=== PATIENT | female | born 1980 | race Caucasian/White ===

== ENCOUNTER 2023-02-23 14:50 | Outpatient (OUT) | payer BC, SELFPAY ==
[2023-02-23 15:52] LABS: Erythrocyte Sedimentation Rate 5 mm/hr (<=20)
[2023-02-23 16:29] LABS: Thyroid Stimulating Hormone 1.106 uIU/mL (0.358-3.740)
[2023-02-23 16:37] LABS: C Reactive Protein <0.2 mg/dL (<=1.0)
[2023-02-24 06:09] LABS: HIV Ab/p24 Ag Screen Non Reactive (Non Reactive)
[2023-02-26 16:09] LABS: Deamidated Gliadin Abs, IgA 12 units (0-19); Deamidated Gliadin Abs, IgG 4 units (0-19); Endomysial Antibody IgA Negative (Negative); Immunoglobulin A, Qn, Serum 150 mg/dL (87-352); t-Transglutaminase (tTG) IgA <2 U/mL (0-3); t-Transglutaminase (tTG) IgG <2 U/mL (0-5)
[2023-02-28 09:10] LABS: C. Difficile PCR NEGATIVE (NEGATIVE)
[2023-02-28 14:14] LABS: Pancreatic Elastase, Fecal 106 (>200)
[2023-03-02 17:09] LABS: Ova + Parasite Exam Final report (.)
[2023-03-03 21:08] LABS: Calprotectin, Fecal 29 ug/g (0-120)
== END 2023-02-23 14:51 ==
LOC: LAB 14:57
PROVIDERS: PCP Family Medicine
DX: K58.0 Irritable bowel syndrome with diarrhea (principal)
CPT/HCPCS: 36415; 82656; 82784; 83993; 84302; 84443; 85652; 86140; 86231; 86258; 86364; 87045; 87046; 87177; 87209; 87389; 87427; 87493

== ENCOUNTER 2025-02-17 12:16 | Outpatient (REF) | payer BC, SELFPAY ==
[2025-02-19 17:08] LABS: Age Gdln ACOG Testing Note (.); HPV Aptima Negative (Negative); IGP, Aptima HPV, rfx 16/18,45 Note (.)
== END 2025-02-17 12:17 | disposition home or self-care (01) ==
LOC: LAB 12:16
PROVIDERS: PCP Family Medicine; Visit Provider Physician Assistant
DX: Z01.419 Encounter for gynecological examination (general) (routine) without abnormal findings (principal)
CPT/HCPCS: 87624; 88175

== ENCOUNTER 2025-02-25 10:07 | Outpatient (OUT) | payer BC, SELFPAY ==
[2025-02-25 10:42] LABS: Basophils Absolute Auto 0.1 10^3/uL (0.0-0.1); Basophils Percent Auto 0.5 % (0.2-2.0); Eosinophils Absolute Auto 0.2 10^3/uL (0.0-0.7); Eosinophils Percent Auto 2.3 % (0.9-7.0); Hematocrit 38.1 % (36.0-48.0); Hemoglobin 12.7 g/dL (12.0-16.0); Immature Granulocytes Abs Auto 0.03 10^3/uL (0.00-0.03); Immature Granulocytes Pct Auto 0.3 % (0.0-0.5); Lymphocytes Absolute Auto 1.5 10^3/uL (1.2-3.8); Lymphocytes Percent Auto 14.9 % (20.5-60.0); Mean Corpuscular HGB Conc 33.3 g/dL (29.9-35.2); Mean Corpuscular Hemoglobin 28.9 pg (26.7-34.0); Mean Corpuscular Volume 86.6 fL (81.0-99.0); Mean Platelet Volume 11.9 fL (9.5-13.5); Monocytes Absolute Auto 0.4 10^3/uL (0.3-0.8); Monocytes Percent Auto 4.2 % (1.7-12.0); Neutrophils Absolute Auto 7.9 10^3/uL (1.4-6.5); Neutrophils Percent Auto 77.8 % (43.0-75.0); Platelet Count 253 10^3/uL (150-450); Red Cell Distribution Width 13.1 % (11.0-15.0); White Blood Count 10.1 10^3/uL (4.0-11.0)
[2025-02-25 10:51] LABS: INR 1.03; Partial Thromboplastin Time 25.4 sec (22.3-36.2); Prothrombin Time 10.9 sec (9.0-11.6)
[2025-02-25 11:32] LABS: Estimated Average Glucose 111 mg/dL; Glycohemoglobin A1C 5.5 % (4.5-6.2)
[2025-02-25 11:42] LABS: Free T4 0.91 ng/dL (0.76-1.46)
[2025-02-25 11:49] LABS: HCG Quantitative <1 mIU/mL
== END 2025-02-25 10:08 | disposition home or self-care (01) ==
LOC: LAB 10:10
PROVIDERS: PCP Family Medicine; Visit Provider Physician Assistant
DX: N92.0 Excessive and frequent menstruation with regular cycle (principal)
CPT/HCPCS: 36415; 83036; 84439; 84443; 84702; 85025; 85610; 85730

== ENCOUNTER 2025-03-25 16:33 | Outpatient (REF) | payer BC, SELFPAY ==
--- OUTSIDE RECORDS SUMMARY | 2024-12-03 09:00 | XMS_ITS | Continuity of Care Document ---
Author Organization [facility] Address [address] [place] [address] Phone Care Team Providers Care Plastics Engineer Name Role Phone Sandip Roberson MD Unavailable Unavailable Allergies, Adverse Reactions, Alerts Substance Reaction Status Criticality Sulfa (Sulfonamide Antibiotics) Hives / Skin RashDyspn ea Active No Information ofloxacin Active No Information clindamycin Active No Information Medications Medication Instructions Dosage Effective Dates (start - stop) Status Comments fluticasone propionate 50 mcg/actuation nasal spray,suspension spray 1 - 2 spray by intranasal route every day in each nostril as needed 50-100 MCG - Active azelastine 137 mcg (0.1 %) nasal spray spray 2 spray by intranasal route 1 times every day in each nostril - Active losartan 100 mg tablet - Act bandar hydroxychloroquine 200 mg tablet - Active amlodipine 5 mg tablet TAKE ONE TABLET BY MOUTH DAILY - Active VITAMIN B-12 (unknown strength) Not Available - Active progesterone micronized 200 mg capsule take 1 capsule by oral route every day for 12 days in the evening sequentially per 28 day cycle 200 MG - Active Crestor 5 mg tablet take 1 tablet by oral route every day 5 MG - Active estradiol 2 mg tablet take 1 tablet by oral route every day 2 MG - Active AcipHex 20 mg tablet,delayed release take 1 tablet by oral route every day swallowing whole. Do not crush, chew and/or divide. 20 MG - Active Procedures Procedure Date POSTOP FOLLOW-UP VISIT CREATE EARDRUM OPENING Hearing aid repair/modifying OFFICE/OUTPATIENT VISIT, EST COMPREHENSIVE HEARING TEST TYMPANOMETRY OFFICE/OUTPATIENT VISIT, EST COMPREHENSIVE HEARING TEST COMPREHENSIVE HEARING TEST TYMPANOMETRY OFFICE/OUTPATIENT VISIT, NEW COMPREHENSIVE HEARING TEST TYMPANOMETRY Advance Directives Directive Yes / No Effective Date File Name No Information Encounters Encounter Description Practice Location Reason(s) For Visit Diagnoses Date Provider Providers Copied on [facility] [address] [facility] [place] [place], [id number], [place] tel:[phone] [facility] Follow Up of ear (chief complaint) Myringotomy tube(s) statusEustachi an tube disorder of right ear 5 Karol Oropeza. [address] [facility] [place] [place], [id number], [place]. tel:[phone] Referring Provider: Janett Zuniga, Myriam4 [facility], [address]. tel:[phone] [facility], [address] [place], [place], [address], [place] tel:[phone] [facility] Ear Concerns (chief complaint) Unspecified Eustachian tube disorder, left ear 5 Metgenoveva Oropeza. [address] [place], [place], [id number], [place]. tel:[phone] Referring Provider: Myriam Lucas4 [facility], [address]. tel:[phone] [facility], [address] [facility] [place], [id number], [place] tel:[phone] [facility] No Information 4 Chela Hopkins. [address] [facility], [address], [place], [place], [id number], [place]. [phone] Referring Provider: Janett Zuniga, [address] [facility], [place], [address]. tel:[phone] OFFICE/OUTPA TIENT VISIT, [facility], [address] [facility], [place], [place], [id number], [place] tel:[phone] [facility] Follow Up of hearing. (chief complaint) Pulsatile tinnitus, left earSensorineur al hearing loss, unilateral, left ear, with restricted hearing on the contralateral side 2 Fady Pittman. [address] [facility], [place], [place], [id number], [place]. tel:[phone] Referring Provider: Janett Zuniga, [address] [facility], [place], [address]. tel:[phone] OFFICE/OUTPA TIENT VISIT, [facility], [address] , [place], [place], [id number], [place] tel:[phone] [facility] Follow Up of hearing. (chief complaint) Pulsatile tinnitus, left earSensorineur al hearing loss, unilateral, left ear, with restricted hearing on the contralateral sideSudden idiopathic hearing loss, left ear 2 Fady Pittman. [address] [facility], [place], [place], [id number], [place]. tel:[phone] Referring Provider: Janett Zuniga, [address] [facility], [place], [address]. tel:[phone] [place] [facility], [address] [facility], [place], [place], [id number], [place] tel:[phone] [facility] No Information 2 Chela Hopkins. [address] [facility], [address], [place], [place], [address], [place]. tel:[phone] Referring Provider: Sandeep York, [address] [facility] [address], [place], [address]. tel:[phone] OFFICE/OUTPA TIENT VISIT, [facility], [address], [place], [place], [address], [place] tel:[phone] [facility] pulse left ear. (chief complaint) Patulous Eustachian tube, left earPulsatile tinnitus, left earMixed conductive and sensorineural hearing loss, unilateral, right ear with restricted hearing on the contralateral sideSensorineu ral hearing loss, unilateral, left ear, with restricted hearing on the contralateral side 2 Chela Hopkins. [address] [facility], [address], [place], [place], [id number], [place]. tel:[phone] Referring Provider: Sandeep York, [address] [facility] [address], [place], [address]. tel:[phone] Family History Family Member Type Diagnosis Age At Onset Problem Family history o f Diabetes mellitus Father Problem (finding) Diabetes mellitus Paternal grandmother Problem (finding) Diabetes mellit us Father Problem (finding) Cardiac disorder Problem Family history of Heart dise ase Father Problem (finding) Anesthesia complication Brother Problem (finding) Cardiac disorder Problem Family history of Hearing lo ss Father Problem (finding) Hearing loss Paternal grandmother Problem (finding) Cardiac disorde r Mother Problem (finding) Diabetes mellitus Payers Payer name Insurance type Covered alliance party ID Authoriza tibonny(s) Blue Ad[employer]age [id number] Social History Type Description Quantity Date Captured Comments Alcohol Use Details No Caffeine Use Details Tobacco Use Status Current non-smoker Smoking Status Never smoker Sex Female Chief Complaint And Reason For Visit From encounter dated '12/03/2024 13:00'. Follow Up of ear (chief complaint) Reason For Referral Reason For Referral No Information Plan Of Treatment Date Type Action Status Appointment Madalyn Novak / Bobby F/U B OOKED History Of Present Illness Encounter Date Complaint History Of Prese nt Illness Follow Up of ear Ear Concerns Follow Up of hearing. Patient wa s up-to-date on her hearing. Overall she was recently seen with a sudden hearing loss in the left ear which appeared to improve potentially with steroids. She reports she continues to have some hearing loss however. I have also seen regarding pulsatile tinnitus that continues to be present but not to a degree that would demand treatment. Follow Up of hearing. Patient se en here in the past regarding left-sided pulsatile tinnitus. Recently she had a flu shot was concerned she had a sudden hearing loss. She particular ported this in her left ear. She reports hearing continues to be down. She does have some pulsatile tinnitus but is much better than it was when she was seen in October by Dr. Hinkle pulse left ear. Functional Status Date Functional Assessmen t No Information Instructions Date Instruction Additional Infor scooter Discussed hearing lo ss discussed pulsatile tinnitus as well but at this time she would like to continue to observe and return to clinic on an as-needed basis Related to Pulsatile tinnitus, left ear Discussed etiology n atural history treatment options of the sudden sensory lossWill elect for oral steroids only as her hearing is still quite aidableWill recheck in 2 monthsWill initiate some steroids acutely Related to Pulsatile tinnitus, left ear Assessments Type Assessment Date assessment Myringotomy tube(s) status Nov- assessment Eustachian tube disorder of righ t ear Patient Care Teams Name Effective Dates (start - stop) Status Members No Information
--- OUTSIDE RECORDS SUMMARY | 2025-03-19 20:00 | XMS_ITS | Continuity of Care Document ---
Author Organization [facility] Address [address] [place] [address] Phone Care Team Providers Care Insurance Follow Up Rep Name Role Phone John Briones MD Unavailable Unavailable Allergies, Adverse Reactions, Alerts Substance Reaction Status Criticality latex Active No Information guaifenesin Active No Information codeine Active No Information Medications Medication Instructions Dosage Effective Dates (start - stop) Status Comments ondansetron HCl 8 mg tablet take 1 tablet by oral route 2 times every day as needed 8 MG - Active Blood Glucose Monitoring kit Monitor blood glucose levels 4 times daily, fasting and 2 hrs after meals - Active lancets Monitor blood glucos e levels 4 times daily, fasting and 2 hrs after meals - Active Blood Glucose Test strips Monitor blood glucose levels 4 times daily, fasting and 2 hrs after meals - Active labetalol 100 mg tablet take 1 tablet by oral route every day as needed 100 MG - Active Effexor XR 150 mg capsule,extended release take 1 capsule by oral route every day 150 MG - Active 28 mg iron-800 mcg tablet take 1 tablet by oral route every day 1 tablet - Active Procedures Procedure Date OBSTETRICAL CARE MED LIST DOCD IN [facility] URINALYSIS NONAUTO W/O SCOPE DIAST BP >= 90 MM HG SYST BP >= 140 MM HG6 IT BIOPHYS PROFIL W/O NST ANTEPARTUM VISIT INSURANCE MED LIST DOCD IN [facility] URINALYSIS NONAUTO W/O SCOPE SYST BP >= 140 MM HG6 IT DIAST BP 80-89 MM HG ANTEPARTUM VISIT INSURANCE BIOPHYS PROFIL W/O NST OB US, FOLLOW-UP, PER FETUS MED LIST DOCD IN [facility] SYST BP GE 130 - 139MM HG DIAST BP 80-89 MM HG URINALYSIS NONAUTO W/O SCOPE BIOPHYS PROFIL W/O NST ANTEPARTUM VISIT INSURANCE MED LIST DOCD IN [facility] URINALYSIS NONAUTO W/O SCOPE SYST BP LT 130 MM HG DIAST BP 80-89 MM HG ANTEPARTUM VISIT INSURANCE BIOPHYS PROFIL W/O NST OB US, FOLLOW-UP, PER FETUS MED LIST DOCD IN [facility] URINALYSIS NONAUTO W/O SCOPE ANTEPARTUM VISIT INSURANCE SUBSEQUENT CARE SYST BP LT 130 MM HG DIAST BP 80-89 MM HG MED LIST DOCD IN [facility] FLOW SHEET ANTEPARTUM VISIT INSURANCE SUBSEQUENT CARE SYST BP LT 130 MM HG DIAST BP < 80 MM HG OB US, FOLLOW-UP, PER FETUS ANTEPARTUM VISIT MEDICAID GLUCOSE TOLERANCE TEST (GTT) SUBSEQUENT CARE MED LIST DOCD IN [facility] DIAST BP < 80 MM HG SYST BP LT 130 MM HG GLUCOSE Tolerance TEST Apr-28-2025 ASSAY, GLUCOSE, BLOOD QUANT FLOW SHEET ANTEPARTUM VISIT MEDICAID MED LIST DOCD IN [facility] OB US >/= 14 WKS, SNGL FETUS DIAST BP < 80 MM HG SYST BP LT 130 MM HG ANTEPARTUM VISIT INSURANCE SUBSEQUENT CARE OB US >/= 14 WKS, SNGL FETUS MED LIST DOCD IN [facility] SYST BP LT 130 MM HG DIAST BP < 80 MM HG BRIEF EMOTIONAL/BEHAV ASSMT Alcohol/subs interv 15-30mn (Medicare) INITIAL CARE VISIT OFFICE/OUTPATIENT VISIT EST, ANTIPARTUM MEDICAID URINE (HCG) URINALYSIS NONAUTO W/O SCOPE MED LIST DOCD IN [facility] DIAST BP >= 90 MM HG SYST BP LT 130 MM HG ROUTINE VENIPUNCTURE HI Advance Directives Directive Yes / No Effective Date File Name No Information Encounters Encounter Description Practice Location Reason(s) For Visit Diagnoses Date Provider Providers Copied on Encounter [facility], [address], [place], [address], [place] tel: [phone] [facility] No Information [facility]. [address], [place], [place], [id number] , [place]. tel:[phone] [facility], [address], [place], [address], [place] tel:+ [phone] [facility] routine (chief complaint) Supervision of high risk , 3rd trimesterSupervision of elderly multigravida, third [id number] weeks gestation of pregnancyBody mass index (BMI) 32.0-32.9, adult [facility]. [address], [place], [address], [place]. tel:[phone] [facility], [address], [place], [address], [place] tel: [phone] [facility] routine (chief complaint) Supervision of high risk , 3rd trimesterHypertensio n37 weeks gestation of pregnancyBody mass index (BMI) 32.0-32.9, adult 5 [facility]. [address], [place], [address], [place]. tel: [phone] [facility], [address], [place], [address], [place] tel: [phone] [facility] routine (chief complaint) Body mass index (BMI) 32.0-32.9, adult37 weeks gestation of pregnancySupervision of high risk , 3rd trimesterSupervision of elderly multigravida, third trimesterHypertensio n 5 [facility]. [address], [place], [address], [place]. tel: [phone] [facility], [address], [place], [address], [place] tel: [phone] [facility] routine (chief complaint) Supervision of high risk , 3rd trimesterEncounter for screening for group B StrepEncounter for screening for infections with a predominantly sexual mode of ikalkzayhyvn58 weeks gestation of 0 5 [facility]. [address], [address], [place], [address], [place]. tel:[phone] [facility], [address], [place], [address], [place] tel:[phone] [facility] routine (chief complaint) Supervision of high risk , 3rd [id number] weeks gestation of pregnancySupervision of elderly multigravida, third trimesterBody mass index (BMI) 32.0-32.9, adult Emmanuel-0 5 [facility]. [address], [place], [address], [place]. tel:[phone] [facility], [address], [place], [address], [place] tel:[phone] [facility] routine (chief complaint) Body mass index (BMI) 32.0-32.9, adultSupervision of elderly multigravida, third [id number] weeks gestation of 5 [facility]. [address], [place], [place], [id number] , [place]. tel:[phone] [facility], [address], [place], [address], [place] tel:[phone] [facility] No Information 5 [facility]. [address], [place], [address], [place]. tel:[phone] [facility], [address], [place], [address], [place] tel:[phone] [facility] routine (chief complaint) Body mass index (BMI) 31.0-31.9, adultSupervision of high risk , 3rd xacjduuqu13 weeks gestation of pregnancyAbnormal glucose 0 [facility]. [address], [address], [place], [place], [id number] , [place]. tel:[phone] [facility], [address], [place], [address], [place] tel:[phone] [facility] No Information 5 [facility]. [address], [place], [place], [id number] , [place]. tel:[phone] [facility], [address], [place], [address], [place] tel:[phone] [facility] routine (chief complaint) Supervision of elderly multigravida, second vmctnpjme20 weeks gestation of pregnancyAbnormal glucose 5 [facility] Cotton. [address], [address], [place], [place], [id number] , [place]. tel: [phone] [facility], [address], [place], [address], [place] tel: [phone] [facility] routine (chief complaint) Supervision of other high risk pregnancies, second jocufcjqu71 weeks gestation of pregnancyEncounter for screening for malformationsTobacco abuse counselingHypertensi onBody mass index (BMI) 32.0-32.9, adultEncounter for screening for non-visualized anatomy on a previous scan 5 [facility]. [address], [place], [address], [place]. tel: [phone] [facility], [address], [place], [address], [place] tel: [phone] [facility] routine (chief complaint) Supervision of other high risk pregnancies, second yvdkbtutd14 weeks gestation of pregnancyEncounter for screening, unspecifiedBody mass index (BMI) 31.0-31.9, adultEncounter for screening for infections with a predominantly sexual mode of transmissionTobacco abuse counselingEncounter for screening for maternal depressionEncounter for screening for other disorder 5 [facility] Martiicia. [address], [place], [address], [place]. tel: [phone] [facility], [address], [place], [address], [place] tel: [phone] [facility] (chief complaint) Encounter for test, result positiveBody mass index (BMI) 32.0-32.9, adult 5 [facility]. [address], [place], [place], [id number] , [place]. tel: [phone] Family History Family Member Type Diagnosis Age At Onset Father Problem 25% of heart was diseased Mother Problem hypertension Mother Problem bi polar, schizophrenic Father Problem Parkinson's Father Problem hypertension Father Problem liver, bone, brain, lung, sk in & prostate cancer Payers Payer name Insurance type Covered libertarian ID Moreno serrano(s) [facility] Choice Plan CI [id number] Social History Type Description Quantity Date Captured Comments Sex Female Smoking Status No Information Chief Complaint And Reason For Visit No Information Reason For Referral Reason For Referral No Information Plan Of Treatment Date Type Action Status Goal Tobacco screenin g. Due on due Goal Urinalysis due Goal Depression scree vikram. Due on due Goal PAP. Due on due Goal Pap, Image guide d, HPV Age Guideline (Aptima) Plus C. trach/N. joseph/T. vag. Due on due Goal Pap, Image guide d. Due on due Goal BMI. Due on due Goal Pap, Image guide d, C. trach/N. joseph/T. vag ALECIA. Due on due Goal HIV screen due Goal Pap, Image guide d, HPV Age Guideline ACOG. Due on due Goal Dietary manageme nt education, guidance, and counseling completed Goal Dietary manageme nt education, guidance, and counseling completed Goal Pap, Image guide d, HPV Age Guideline (Aptima) Plus C. trach/N. joseph/T. vag. Due on due Goal PAP. Due on due Goal BMI. Due on due Goal Tobacco screenin g. Due on due Goal HIV screen due Goal Pap, Image guide d, HPV Age Guideline ACOG. Due on due Goal Depression scree vikram. Due on due Goal Pap, Image guide d. Due on due Goal Pap, Image guide d, C. trach/N. joseph/T. vag ALECIA. Due on due Goal Urinalysis due Goal Dietary manageme nt education, guidance, and counseling completed Goal Urinalysis due Goal HIV screen due Goal Pap, Image guide d, HPV Age Guideline (Aptima) Plus C. trach/N. joseph/T. vag. Due on due Goal Pap, Image guide d. Due on due Goal BMI. Due on due Goal Tobacco screenin g. Due on due Goal Depression scree vikram. Due on due Goal PAP. Due on due Goal Pap, Image guide d, C. trach/N. joseph/T. vag ALECIA. Due on due Goal Pap, Image guide d, HPV Age Guideline ACOG. Due on due Goal Dietary manageme nt education, guidance, and counseling completed Goal Depression scree vikram. Due on due Goal Pap, Image guide d, C. trach/N. joseph/T. vag ALECIA. Due on due Goal HIV screen due Goal Tobacco screenin g. Due on due Goal Pap, Image guide d, HPV Age Guideline (Aptima) Plus C. trach/N. joseph/T. vag. Due on due Goal BMI. Due on due Goal Pap, Image guide d. Due on due Goal PAP. Due on due Goal Pap, Image guide d, HPV Age Guideline ACOG. Due on due Goal Urinalysis. Due on due Goal Pap, Image guide d, HPV Age Guideline (Aptima) Plus C. trach/N. joseph/T. vag. Due on due Goal HIV screen due Goal Depression Follo w-Up. Due on due Goal Tobacco screenin g. Due on due Goal Pap, Image guide d, HPV Age Guideline ACOG. Due on due Goal Depression scree vikram. Due on due Goal PAP. Due on due Goal Pap, Image guide d, C. trach/N. joseph/T. vag ALECIA. Due on due Goal BMI. Due on due Goal BMI Adult Follow -Up. Due on due Goal Pap, Image guide d. Due on due Goal Tobacco Follow-U p. Due on due Goal Urinalysis due Goal Dietary manageme nt education, guidance, and counseling completed Goal Depression Follo w-Up. Due on due Goal Pap, Image guide d, HPV Age Guideline ACOG. Due on due Goal Tobacco Follow-U p. Due on due Goal Pap, Image guide d, HPV Age Guideline (Aptima) Plus C. trach/N. joseph/T. vag. Due on due Goal Tobacco screenin g. Due on due Goal PAP. Due on due Goal Pap, Image guide d, C. trach/N. joseph/T. vag ALECIA. Due on due Goal Depression scree vikram. Due on due Goal BMI. Due on due Goal Pap, Image guide d. Due on due Goal BMI Adult Follow -Up. Due on due Goal HIV screen due Goal Urinalysis due Goal Lifestyle educat ion regarding diet completed Goal Pap, Image guide d, HPV Age Guideline ACOG. Due on due Goal Depression Follo w-Up. Due on due Goal Pap, Image guide d, C. trach/N. joseph/T. vag ALECIA. Due on due Goal PAP. Due on due Goal Pap, Image guide d, HPV Age Guideline (Aptima) Plus C. trach/N. joseph/T. vag. Due on due Goal Pap, Image guide d. Due on due Goal BMI. Due on due Goal Tobacco screenin g. Due on due Goal HIV screen due Goal Tobacco Follow-U p. Due on due Goal BMI Adult Follow -Up. Due on due Goal Depression scree vikram. Due on due Goal Urinalysis due Goal BMI. Due on due Goal Pap, Image guide d. Due on due Goal BMI Adult Follow -Up. Due on due Goal Depression Follo w-Up. Due on due Goal Pap, Image guide d, HPV Age Guideline (Aptima) Plus C. trach/N. joseph/T. vag. Due on due Goal Depression scree vikram. Due on due Goal Pap, Image guide d, HPV Age Guideline ACOG. Due on due Goal HIV screen due Goal PAP. Due on due Goal Tobacco Follow-U p. Due on due Goal Tobacco screenin g. Due on due Goal Pap, Image guide d, C. trach/N. joseph/T. vag ALECIA. Due on due Goal Urinalysis due Goal Lifestyle educat ion regarding diet completed Goal Tobacco Follow-U p. Due on due Goal BMI Adult Follow -Up. Due on due Goal Pap, Image guide d, HPV Age Guideline ACOG. Due on due Goal BMI. Due on due Goal Depression scree vikram. Due on due Goal Depression Follo w-Up. Due on due Goal Pap, Image guide d, C. trach/N. joseph/T. vag ALECIA. Due on due Goal HIV screen due Goal PAP. Due on due Goal Tobacco screenin g. Due on due Goal Pap, Image guide d. Due on due Goal Pap, Image guide d, HPV Age Guideline (Aptima) Plus C. trach/N. joseph/T. vag. Due on due Goal Urinalysis due Goal Urinalysis due Goal Tobacco screenin g. Due on due Goal Pap, Image guide d. Due on due Goal PAP. Due on due Goal Depression Follo w-Up. Due on due Goal Pap, Image guide d, HPV Age Guideline ACOG. Due on due Goal Depression scree vikram. Due on due Goal Pap, Image guide d, HPV Age Guideline (Aptima) Plus C. trach/N. joseph/T. vag. Due on due Goal Pap, Image guide d, C. trach/N. joseph/T. vag ALECIA. Due on due Goal HIV screen due Goal Tobacco Follow-U p. Due on due Goal BMI Adult Follow -Up. Due on due Goal BMI. Due on due Goal Dietary manageme nt education, guidance, and counseling completed Goal BMI Adult Follow -Up. Due on due Goal Depression scree vikram. Due on due Goal BMI. Due on due Goal Pap, Image guide d, C. trach/N. joseph/T. vag ALECIA. Due on due Goal HIV screen due Goal Pap, Image guide d, HPV Age Guideline ACOG. Due on due Goal Tobacco screenin g. Due on due Goal PAP. Due on due Goal Pap, Image guide d, HPV Age Guideline (Aptima) Plus C. trach/N. joseph/T. vag. Due on due Goal Depression Follo w-Up. Due on due Goal Pap, Image guide d. Due on due Goal Tobacco Follow-U p. Due on due Goal Dietary manageme nt education, guidance, and counseling completed Goal Tobacco cessation counseling completed Goal Pap, Image guide d, HPV Age Guideline (Aptima) Plus C. trach/N. joseph/T. vag. Due on due Goal PAP. Due on due Goal Pap, Image guide d, HPV Age Guideline ACOG. Due on due Goal Tobacco screenin g. Due on due Goal BMI. Due on due Goal Depression Follo w-Up. Due on due Goal Depression scree vikram. Due on due Goal Tobacco Follow-U p. Due on due Goal Pap, Image guide d. Due on due Goal HIV screen. Due on due Goal BMI Adult Follow -Up. Due on due Goal Pap, Image guide d, C. trach/N. joseph/T. vag ALECIA. Due on due Goal Dietary manageme nt education, guidance, and counseling completed Referral Ordered: Mehreen Mcclellan -Obstetrics (related to Hypertension) ordered Future Order: Lab Order Protein and Creatinine, Random Urine ([id number]), Ordered on: Ordered Future Order: Lab Order Gestatio nal Glucose Tolerance (3Hr) ([id number]), Ordered on: Ordered Future Order: Radiology Order EC G, 12 lead, init preventive screening, interp and report only ([id number]), Collected on: Ordered History Of Present Illness Encounter Date Complaint History Of Prese nt Illness routine routine routine routine routine routine routine routine routine EKG routine the man she is to, is not the father of this baby. LMP was 07/01/20 24. Patient was not taking control pills at or around the time of her LMP. Context: confirmed by home test on 08/12/2024. confirmed by lab test on 09/23/2024. The patient had 4 previous pregnancies. The patient denies aggravating factors. Associated symptoms include fatigue, headache. Pertinent negatives include anorexia, easy bleeding, breast tenderness, constipation, edema, fever, heartburn, irritability, nausea, pelvic pain, spotting, urinary difficulty, vaginal discharge, vomiting. Additional information: pt states the man she is too, is not the father of the baby. pt states she has been on . She had been seeing [facility] and had an U/S. U/S 10.22.2024 measuring at 16 weeks & 5 dayspt has chronic fatigue, pt has round ligament pain. Functional Status Date Functional Assessmen t No Information Instructions Date Instruction Additional Infor scooter Dietary management e ducation, guidance, and counseling Related to Body mass index [BMI] 32.0-32.9, adult Dietary management e ducation, guidance, and counseling Related to Body mass index [BMI] 32.0-32.9, adult Dietary management e ducation, guidance, and counseling Related to Body mass index [BMI] 32.0-32.9, adult Dietary management e ducation, guidance, and counseling Related to Body mass index [BMI] 32.0-32.9, adult Dietary management e ducation, guidance, and counseling Related to Body mass index [BMI] 32.0-32.9, adult Lifestyle education regarding di et Related to Body mass index [BMI] 32.0-32.9, adult Giving encouragement to exercise Related to Body mass index [BMI] 32.0-32.9, adult Giving encouragement to exercise Related to Body mass index [BMI] 31.0-31.9, adult Lifestyle education regarding di et Related to Body mass index [BMI] 31.0-31.9, adult Dietary management e ducation, guidance, and counseling Related to Body mass index [BMI] 32.0-32.9, adult Dietary management e ducation, guidance, and counseling Related to Body mass index [BMI] 31.0-31.9, adult Dietary management e ducation, guidance, and counseling Related to Body mass index [BMI] 32.0-32.9, adult Assessments Type Assessment Date No Information Patient Care Teams Name Effective Dates (start - stop) Status Members No Information
--- OUTSIDE RECORDS SUMMARY | 2025-03-25 13:30 | XMS_ITS | Encounter Summary ---
Author Organization [facility] Address [address] [place] [address] Care Team Providers Care Watchstander Name Role Phone Bay Mccullough MD Primary Care Provider [phone] Reason for Visit * Reason Comments Pre-op Visit embx Encounter Details Date Type Department Care Team (Late st Contact Info) Description 03/25/2025 1:30 PM EDT Procedure Visit [facility] [address] [place] [address] Erasmo Red DO [address] [place] [address] Pre-op examination; Menorrhagia with regular cycle; Abnormal uterine bleeding (AUB); Pelvic pain Social History Tobacco Use Types Packs/Day Years Used Date Smoking Tobacco: Never Assessed Comments Unknown Sex and Gender Information Value Date Recorded Sex Assigned at Not on file Legal Sex Female 7:19 PM EDT Gender Identity Female 02/16/2025 10:31 AM EDT Sexual Orientation Not on file documented as of this encounter Last Filed Vital Signs Vital Sign Reading Time Taken Comments Blood Pressure 112/64 03/25/2025 1:42 PM EDT Pulse - - Temperature - - Respiratory Rate - - Oxygen Saturation - - Inhaled Oxygen Concentration - - Weight 61.5 kg (135 lb 8 oz) 03/25/2025 1:42 PM EDT Height - - Body Mass Index 21.22 02/17/2025 9:21 AM EDT documented in this encounter Progress Notes * Chika Carballo - 03/25/2025 1:30 PM EDT Reason for Appointment: Patient ID: Madalyn Aguilar is a 44 y.o. female who presents for Pre-op Visit and embx Patient presents today for Pre Op/Endometrial Biopsy appointment. Patient is scheduled to undergo Endometrial Ablation with Sari on 04-24-[address] Red at [facility]. MEDICATIONS No current outpatient medications ALLERGIES No Known Allergies PROBLEMS Active Ambulatory Problems Diagnosis Date Noted No Active Ambulatory Problems Resolved Ambulatory Problems Diagnosis Date Noted No Resolved Ambulatory Problems No Additional Past Medical History HISTORY PAST MEDICAL HISTORY SOCIAL HISTORY No past medical history on file. Social History Tobacco Use Smoking status: Not on file Smokeless tobacco: Not on file Substance Use Topics Alcohol use: Not on file Drug use: Not on file FAMILY HISTORY Family History Problem Relation Name Age of Onset Thyroid disease Mother Rheum arthritis Father Cancer Father Blood Cervical cancer Mother's Sister Breast cancer Paternal Grandmother mastectomy SURGICAL HISTORY Past Surgical History: Procedure Laterality Date SECTION, LOW TRANSVERSE 2002 TUBAL LIGATION 9-10 years ago REVIEW OF SYSTEMS Review of Systems: Review of Systems Constitutional: Negative. HENT: Negative. Eyes: Negative. Respiratory: Negative. Cardiovascular: Negative. Gastrointestinal: Negative. Genitourinary: Negative. Musculoskeletal: Negative. Skin: Negative. Neurological: Negative. All other systems reviewed and are negative. Hematological: Negative. Endocrine: Negative. Allergic/Immunologic: Negative. OBJECTIVE Objective: Physical Exam Constitutional: Appearance: Normal appearance. She is well-developed. Genitourinary: Vulva normal. Cardiovascular: Rate and Rhythm: Normal rate and regular rhythm. Pulmonary: Effort: Pulmonary effort is normal. Breath sounds: Normal breath sounds. Abdominal: General: Bowel sounds are normal. There is no distension. Palpations: Abdomen is soft. Tenderness: There is no abdominal tenderness. There is no guarding or rebound. Musculoskeletal: General: No swelling. Normal range of motion. Right lower leg: No edema. Left lower leg: No edema. Neurological: Mental Status: She is alert and oriented to person, place, and time. Skin: General: Skin is warm and dry. Psychiatric: Mood and Affect: Mood normal. Behavior: Behavior normal. Vitals and nursing note reviewed. Exam conducted with a urban gardening specialist present. Vitals: Estimated body mass index is 21.32 kg/m?? as calculated from the following: Height as of 02/17/25: 5' 7 . Weight as of 02/17/25: 136 lb 1.9 oz. BP: No LMP recorded. ASSESSMENT & PLAN ICD-10-CM 1. Pre-op examination Z01.818 2. Menorrhagia with regular cycle N92.0 3. Abnormal uterine bleeding (AUB) N93.9 4. Pelvic pain R10.2 EMBX: Patient was placed in dorsal lithotomy position with feet in stirrups. A sterile speculum was placed into the vagina and the cervix was visualized. The cervix was grasped with a single tooth tenaculum. The endometrial pipette was placed through the cervix into the uterus, endometrial curettage was performed and sampling was obtained, endometrial curettings were placed in formalin, and single tooth tenaculum was removed. Excellent hemostasis was assured. All instruments were removed from vagina. Pre Op: Patient is doing well but has complaints of bleeding and pelvic pain. Patient has tried hormone therapy in the past but all attempts to subside patients issues have failed. I have discussed conservative management vs. surgical management with the patient in detail and patient desires surgical management at this time. Patient will undergo Endometrial Ablation with Sari on 04/24/25. Surgical consents were signed, mmc was reviewed, and patient is to proceed to [facility] OR. Follow Up: Patient is to follow up between 1-2 weeks post op to assess proper healing and recovery from procedure. Documented by Yue Mckeon LPN on behalf of: Erasmo Red DO documented in this encounter Plan of Treatment Upcoming Encounters Date Type Department Care Team (Late st Contact Info) Description 05/07/2025 10:30 AM EDT Office Visit [facility] [address] [place] [phone] Maria M Cummings PA [address] [place] [address] documented as of this encounter Procedures Procedure Name Priority Date/Time Associated Diagnosis Comments POCT , URINE Routine 03/25/2025 1:49 PM EDT Pre-op examination documented in this encounter Results * POCT , urine manually resulted (03/25/2025 1:49 PM EDT) Preg Test, Ur Negative Negative Urine 03/25/2025 1:49 PM EDT Erasmo Red DO POINT OF CARE TEST ENTER/EDIT OR DERABLES Final Result documented in this encounter Visit Diagnoses Diagnosis Pre-op examination Menorrhagia with regular cycle Abnormal uterine bleeding (AUB) Pelvic pain documented in this encounter Care Teams Watchstander Relationship Specialty Start Date End Date Bay Mccullough MD [address] [place] [address] PCP - General Family Medicine 02/17/25 documented as of this encounter
--- OUTSIDE RECORDS SUMMARY | 2025-04-08 16:35 | XMS_ITS | Clinical Summary ---
Author Organization [facility] Address [address] [place] [address] Care Team Providers Care Environmental Journalist Name Role Phone Ginger Toledo HEEL EMERY BUFFER Unavailable [phone] Allergies No known active allergies Medications Cholecalciferol [...] Description 03/17/2025 [place] [address] Provider, Ccf Sign up to manage your [...] Insurance BLUE CARD PPO OOS Care Teams Environmental Journalist Relationship Specialty Start Date End Date Ginger Toledo CNP [address] [place] [address] Referring Internal Medicine 03/29/23
--- OUTSIDE RECORDS SUMMARY | 2025-04-08 16:35 | XMS_ITS | Encounter Summary ---
Author Organization [facility] Address [address] [place] [address] Care Team Providers Care Credit Counselor Name Role Phone Bay Mccullough MD Primary Care Provider [phone] Encounter Details Date Type Department Care Team (Late Contact Info) Description 03/25/2025 Abstract [facility] Juventino SMALLWOOD [address] [place] [phone] Erasmo Red DO [address] [place], [facility]11 Social History Tobacco Use Types Packs/Day Years [...] EDT Office Visit [facility] Juventino SMALLWOOD [address] [place] [address] Maria M Cummings PA [address] [facility] [place], [place] [phone] documented as of this encounter Visit Diagnoses Not on filedocumented in this encounter Care Teams Credit Counselor Relationship Specialty Start Date End Date Bay Mccullough MD [address] [place] [address] PCP - General Family Medicine 02/17/25 documented as of this encounter
--- OUTSIDE RECORDS SUMMARY | 2025-04-08 16:35 | XMS_ITS | Encounter Summary ---
Author Organization [facility] Address [facility] [place] [address] Care Team Providers Care Rail Operations Controller Name Role Phone Ginger Toledo FAX MACHINE REPAIRER Unavailable [phone] Source Comments In the event this information is protected by the Federal Confidentiality of Alcohol and Drug AbusePatient Records regulations: The Federal rules restrict any use of the information to criminally investigate or prosecute any alcohol or drug abuse patient.[facility] Encounter Details Date Type Department Care Team (Late st Contact Info) Description 09/18/2023 Patient Msg General Surgery [address] [place] [phone] Denice Mustafa LPN [address] [place], [place] [phone] Dr. Rodriguez office Social History Tobacco Use [...] on filedocumented in this encounter Care Teams Rail Operations Controller Relationship Specialty Start Date End Date Ginger Toledo CNP [address] [place] [address] Referring Internal Medicine 03/29/23 documented as of this encounter
--- OUTSIDE RECORDS SUMMARY | 2025-04-08 16:35 | XMS_ITS | Encounter Summary ---
Author Organization [facility] Address [facility] [place] [address] Care Team Providers Care Fermenter Wine Name Role Phone Ginger Toledo LAMINATION TECHNICIAN Unavailable [phone] Source Comments In the event this information is protected by the Federal Confidentiality of Alcohol and Drug AbusePatient Records regulations: The Federal rules restrict any use of the information to criminally investigate or prosecute any alcohol or drug abuse patient.[facility] Encounter Details Date Type Department Care Team (Late st Contact Info) Description 03/17/2025 [place] [address] Provider, Ccf Sign up to manage your [...] on filedocumented in this encounter Care Teams Fermenter Wine Relationship Specialty Start Date End Date Ginger Toledo, LAMINATION TECHNICIAN [address] [place] [phone] Referring Internal Medicine 03/29/23 documented as of this encounter
--- OUTSIDE RECORDS SUMMARY | 2025-04-08 16:35 | XMS_ITS | Encounter Summary ---
Author Organization [facility] Address [address] [address] Care Team Providers Care Tile Conduit Layer Name Role Phone Bay Mccullough MD Primary Care Provider [phone] Encounter Details Date Type Department Care Team (Late st Contact Info) Description 02/26/2025 Orders Only ERIC SMALLWOOD [address] [place] [phone] Renu Valera MA [address] [place] [address] Social History Tobacco Use Types Packs/Day Years [...] AM EDT Office Visit ERIC SMALLWOOD [address] [place] [address] Maria M Cummings PA [address] [place] [address] documented as of this encounter Procedures Procedure Name Priority Date/Time Associated Diagnosis Comments PAP SMEAR Routine 02/17/2025 12:00 AM EDT documented in this encounter Results * Pap Smear (02/17/2025 12:00 AM EDT) Swab Cervical swab / Unknown Maria M CANALES LAB CYTOLOGY ORDERABLES Final Re sult EXTERNAL LAB documented in this encounter Visit Diagnoses Not on filedocumented in this encounter Care Teams Tile Conduit Layer Relationship Specialty Start Date End Date Bay Mccullough MD [address] [place] [phone] PCP - General Family Medicine 02/17/25 documented as of this encounter
--- OUTSIDE RECORDS SUMMARY | 2025-04-08 16:35 | XMS_ITS | Encounter Summary ---
Author Organization [facility] Address [facility] [place] [address] Care Team Providers Care Middle School Band Teacher Name Role Phone Ginger Toledo DANCE MASTER Unavailable [phone] Source Comments In the event this information is protected by the Federal Confidentiality of Alcohol and Drug AbusePatient Records regulations: The Federal rules restrict any use of the information to criminally investigate or prosecute any alcohol or drug abuse patient.[facility] Encounter Details Date Type Department Care Team (Late st Contact Info) Description 07/13/2023 Patient Msg Gastroenterology [address] [place] [address] Fauzia Rodriguez MD [address] [place] [address] results Social History Tobacco Use Types Packs/Day [...] on filedocumented in this encounter Care Teams Middle School Band Teacher Relationship Specialty Start Date End Date Ginger Toledo CNP [address] [place] [address] Referring Internal Medicine 03/29/23 documented as of this encounter
--- OUTSIDE RECORDS SUMMARY | 2025-04-08 16:35 | XMS_ITS | Clinical Summary ---
Author Organization [facility] Address [address] [place] [address] Care Team Providers Care Elementary Educator Name Role Phone Bay Mccullough MD Primary Care Provider [phone] Allergies No known active allergies Medications estradiol (Estrace) 0.1 MG/GM vaginal creamIndication s:Hormone imbalance Insert 2 g into the vagina at bedtime At bedtime for 2 weeks, then at bedtime twice a week. 42.5 g 02/17/2025 03/19/20 25 Encounters Date Type Department Care Team Description 04/08/2025 Clinisync Result Encounter NOMS External Department Unsolicited Tatyana Red DO 03/25/2025 1:30 PM EDT Procedure Visit [facility] May[facility] [address] [place] [address] Tatyana Red DO Pre-op examination; Menorrhagia with regular cycle; Abnormal uterine bleeding (AUB); Pelvic pain 03/25/2025 Abstract [facility] [address] [place] [address] Tatyana Red DO 03/25/2025 External Result Encounter NOMS External Department UnsolicTatyana Bauer DO 03/25/2025 Travel 02/26/2025 Orders Only [facility] Mayelin [address] [address] [place] [address] Renu Valera MA 02/25/2025 9:30 AM EDT Ancillary Procedure [facility] [place] [address] Menorrhagia with regular cycle 02/25/2025 Clinisync Result Encounter NOMS External Department Unsolicited Maria M Cummings PA 02/24/2025 Travel 02/17/2025 9:00 AM EDT Office Visit [facility] [place] [address] Maria M Cummings PA Well woman exam with routine gynecological exam; Breast cancer screening by mammogram; Hormone imbalance; Menorrhagia with regular cycle 02/17/2025 Clinisync Result Encounter NOMS External Department Unsolicited Maria M Cummings PA 02/17/2025 [place] [address] Maria M Cummings PA 02/16/2025 Travel from [...] 05/07/2025 10:30 AM EDT [place] [address] [place] [address] Maria M Cummings PA [address] [place] [address] Procedures Procedure Name Priority Date/Time Associated Diagnosis Comments XR CHEST 2V 04/08/2025 11:33 AM EDT POCT , URINE Routine 03/25/2025 1:49 PM [...] EDT from Last 3 Months Results * XR CHEST 2V (04/08/2025 11:33 AM EDT) Anatomical Region Laterality Modality Other 04/08/2025 11:3 3 AM EDT Narrative 04/08/2025 11:36 AM EDT [place] [id number] XRay Report Signed Patient: ROSEMARY DEVINE MR#: [id number] : 1980 Acct:[id number] Age/Sex: 44 / F ADM Date: 04/08/25 Loc: [facility] Attending Dr: Tatyana Red D.O. Ordering Physician: Tatyana Red D.O. Date of Service: 04/08/25 Procedure(s): XR chest 2V Accession Number(s): [id number] cc: Tatyana Red D.O.; Bay Mccullough M.D. The [address] [address] Patient Name: ROSEMARY DEVINE MRN: [id number] date: 1980 Sex: F Assigned Patient Location: [facility] Current Patient Location: [facility] Accession/Order Number: [id number] Exam Date: 04/08/2025 11:33 Report Date: 04/08/2025 11:33 At the request of: TATYANA RED DO Procedure: XR chest 2V Chest 2 views CLINICAL HISTORY: Preop exam COMPARISON: None FINDINGS: Heart normal in size. Lungs are clear. No free air. XR/XR chest 2V IMPRESSION: NO ACUTE CARDIOPULMONARY ABNORMALITY. Impression dictated by: Boubacar Florian Jr., D.O. 04/08/2025 11:33 AM Dictation Location: [place] [address] Electronically authenticated by: [id number] Y Date: 04/08/2025 11:33 Dictated By: Boubacar Florian M.D. Signed By: 04/08/25 1136 DD/ 1133 TD/TT: Turkey Egg Gatherer: Procedure Note Radiology, Radiologist, - 04/08/2025 The [place] [id number] XRay Report Signed Patient: ROSEMARY DEVINE AMR#: [id number] : 1980Acct:[id number] Age/Sex: 44 / FADM Date: 04/08/25 Loc: PST Attending Dr: Tatyana Red D.O. Ordering Physician: Tatyana Red D.O. Date of Service: 04/08/25 Procedure(s): XR chest 2V Accession Number(s): [id number] cc: Tatyana Red D.O.; Bay Mccullough M.D. [place] [address] Patient Name: ROSEMARY DEVINE MRN: [id number] date: 1980 Sex: F Assigned Patient Location: [facility] Current Patient Location: [facility] Accession/Order Number: [id number] Exam Date: 04/08/2025 11:33 Report Date: 04/08/2025 11:33 At the request of: TATYANA RED DO Procedure: XR chest 2V Chest 2 views CLINICAL HISTORY: Preop exam COMPARISON: None FINDINGS: Heart normal in size. Lungs are clear. No free air. XR/XR chest 2V IMPRESSION: NO ACUTE CARDIOPULMONARY ABNORMALITY. Impression dictated by: Boubacar Florian Jr., D.O. 04/08/2025 11:33 AM Dictation Location: [place] [address] Electronically authenticated by: [id number] Y Date: 1:33 Dictated By: Boubacar Florian M.D. Signed By:04/08/25 1136 DD/ 1133 TD/TT: Turkey Egg Gatherer: Tatyana Red DO [facility] Final Result * POCT , urine manually resulted (03/25/2025 1:49 PM EDT) Preg Test, Ur Negative Negative Urine 03/25/2025 1:49 PM EDT Tatyana Red DO POINT OF CARE TEST ENTER/EDIT OR DERABLES Final Result * PATHOLOGY REQUEST FOR LAB MESHA (03/25/2025 12:00 AM EDT) PATHOLOGY REQUEST FOR LAB MESHA 04/01/2025 7:50 AM EDT [facility] Comment:See report. Scanned copy available in EMR. Other Topography unknown / Unknown 03/25/2025 03/26/2025 10:05 AM EDT Narrative [facility] - 04/01/2025 7:50 AM EDT EMBX Tatyana Red DO LAB BLOOD ORDERABLES Final Resul t Performing Organization Address City/[facility]/ZIP Co de Phone Number [facility] [address] [place] [id number], [facility] [address] [place] [address] * [facility] PREG QUANT HCG (02/25/2025 10:22 AM EDT) Pathologist [facility] HCG QUANTITATIVE <1 mIU/mL [facility] Comment: 5-50 0.2-1 WEEK 50-500 1-2 WEEKS 100-5,000 2-3 WEEKS 500-10,000 3-4 WEEKS 1,000-50,000 4-5 WEEKS 10,000-100,000 5-6 WEEKS 15,000-200,000 6-8 WEEKS 10,000-100,000 2-3 MONTHS 02/25/2025 10:2 2 AM EDT 02/25/2025 10:24 AM EDT Madeline [facility] - 02/25/2025 11:49 AM EDT Maria M HENDERSONISYBOBO Final Result [facility] TB * SRMCOH PROTHROMBIN [...] M PENG Final Result Performing Organization Address [facility] de Phone Number [facility] TB * MLR HEMOGLOBIN A1C (02/25/2025 10:22 AM EDT) GLYCOHEMOGLOBIN A1C 5.5 4.5 - 6.2 % [facility] Comment: ADA RECOMMENDED LIMIT 4.0 - 6.0 ADA THERAPEUTIC TARGET < 7.0 ACTION SUGGESTED > 7.0 ESTIMATED AVERAGE GLUCOSE 111 mg/dL TB 02/25/2025 10:2 2 AM EDT 02/25/2025 10:24 AM EDT Narrative [facility] - 02/25/2025 11:35 AM EDT Maria M PENG Final Result Performing Organization Address [facility] de Phone Number [facility] TB * CCF APTT (02/25/2025 10:22 AM EDT) PARTIAL THROMBOPLASTIN TIME 25.4 22.3 - 36.2 sec [facility] 02/25/2025 10:2 2 AM EDT 02/25/2025 10:24 AM EDT Narrative [facility] - 02/25/2025 11:00 AM EDT Maria M HENDERSONISYBOBO Final Result Performing Organization Address [facility] de Phone Number [facility] TB * ALL THYROXINE (T4) FREE (02/25/2025 10:22 AM EDT) FREE T4 0.91 0.76 - 1.46 ng/dL TB 02/25/2025 10:2 2 AM EDT 02/25/2025 10:24 AM EDT Narrative [facility] - 02/25/2025 11:44 AM EDT Maria M PENG Final Result [facility] TB * ALL THYROID STIM HORMONE (02/25/2025 10:22 AM EDT) THYROID STIMULATING HORMONE 1.470 0.358 - 3.740 uIU/mL [facility] 02/25/2025 10:2 2 AM EDT 02/25/2025 10:24 AM EDT Narrative [facility] - 02/25/2025 11:49 AM EDT Maria M HENDERSONISYBOBO Final Result Performing Organization Address City/[facility]/ZIP Co de Phone Number [facility] TB * (ABNORMAL) ALL CBC WITH AUTO DIFF (02/25/2025 10:22 AM EDT) [facility] WBC 10.1 4.0 - 11.0 10 3/uL [facility] TBH RBC 4.40 4.20 - 5.40 10 6/uL [facility]H TBH HGB 12.7 12.0 - 16.0 g/dL TBH TB HCT 38.1 36.0 - 48.0 % [facility] TBH MCV 86.6 81.0 - 99.0 fL TBH TBH MCH 28.9 26.7 - 34.0 pg TBH TBH MCHC 33.3 29.9 - 35.2 g/dL TB TB RDW 13.1 11.0 - 15.0 % [...] EDT us Maria M PENG Final Result [facility] * US Pelvis w/ TV (02/25/2025 9:53 [...] II, MD, PHD at 27-Feb-2025 06:13:44 AM [facility] Procedure Note Yamila Morales MD - [...] bilateral ovaries. Interpreted by: Electronically signed by YMAILA MORALES II, MD, PHD [id number] 06:13:44 AM [facility] us Maria M CANALES Jake US PROCEDURES Final Result * IGP,APTIMA HPV,AGE GDLN (02/17/2025 9:10 AM EDT) AGE GDLN ACOG TESTING Note . [facility] Comment: TESTS RESULT FLAG UNITS REF RANGE LAB Clinician Provided Cytology Information Source.............Cervix;Endocervix No. of containers..01 ThinPrep Vial Age Algo ACOG Laurie... 30-65 01 FLAG LEGEND: L-Low Normal,H-High Normal,LL-Alert Low,HH-Alert High <-Panic Low,>-Panic High,A-Abnormal,AA-Critical Abnormal Performed at: 01 =[facility] [address] Emely Barrera MD, IGP, APTIMA HPV, RFX 16/18,45 Note . [facility] Comment: TESTS RESULT FLAG UNITS REF RANGE LAB DIAGNOSIS: 02 NEGATIVE FOR INTRAEPITHELIAL LESION OR MALIGNANCY. Specimen adequacy: 02 Satisfactory for evaluation. Endocervical and/or squamous metaplastic cells (endocervical component) are present. Performed by: Irina Flores, Netezza Developer ([facility]) . 02 Note: Note 02 The Pap [...] <-Panic Low,>-Panic High,A-Abnormal,AA-Critical Abnormal Performed at: [address] [address] Emely Barrera MD, HPV APTIMA Negative Negative [facility] Comment: This nucleic acid amplification test detects fourteen high- risk HPV types (16,18,31,33,35,39,45,51,52,56,58,59,66,68) without differentiation. Performed at: =[facility] [id number] [employer] Director: Emely Barrera MD, Phone: [phone] Performed at: [facility] [id number] [employer] Director: Emely Barrera MD, Phone: [phone] 02/17/2025 9:10 AM EDT 02/17/2025 12:19 PM EDT Narrative [facility] - 02/19/2025 5:08 PM EDT BRUSH-SPATULA CERVIX ENDOCERVIX Maria M CANALES LAB BLOOD ORDERABLES Final Resul t Performing Organization Address [facility]/ZIP Co de Phone Number [facility] * Pap Smear (02/17/2025 12:00 AM EDT) Swab Cervical swab / Unknown Maria M CANALES LAB CYTOLOGY ORDERABLES Final Re sult Performing Organization Address [facility]/ZIP Co de Phone Number EXTERNAL LAB from Last 3 Months Insurance BCBS Care Teams Elementary Educator Relationship Specialty Start Date End Date Bay Mccullough MD [address] [place] [phone] PCP - General Family Medicine 02/17/25
--- OUTSIDE RECORDS SUMMARY | 2025-04-08 16:36 | XMS_ITS | Encounter Summary ---
Author Organization [facility] Address [address] [place] [address] [place] [address] Care Team Providers Care Air Bag Buffer Name Role Phone Bay Mccullough MD Primary Care Provider [phone] Encounter Details Date Type Department Care Team (Late Contact Info) Description 03/25/2025 External Result Encounter NOMS External Department Unsolicited Erasmo Red DO [address] [place], [facility]11 Social History Tobacco Use Types Packs/Day [...] AM EDT Office Visit ERIC [facility]WOOD [address] [place] [address] Maria M Cummings PA [address] [place] [address] documented as of this encounter Procedures Procedure Name Priority Date/Time Associated Diagnosis Comments PATHOLOGY REQUEST FOR LAB MESHA Routine 03/25/2025 12:00 AM EDT documented in this encounter Results * PATHOLOGY REQUEST FOR LAB MESHA (03/25/2025 12:00 AM EDT) PATHOLOGY REQUEST FOR LAB MESHA 04/01/2025 7:50 AM EDT [facility] Comment:See report. Scanned copy available in EMR. Other Topography unknown / Unknown 03/25/2025 03/26/2025 10:05 AM EDT Narrative [facility] - 04/01/2025 7:50 AM EDT EMBX us Erasmo Red DO LAB BLOOD ORDERABLES Final Resul t Performing Organization Address City/State/[facility] Co de Phone Number [facility] [address] [place] [address], [facility] [address] [place] [address] documented in this encounter Visit Diagnoses Not on filedocumented in this encounter Care Teams Air Bag Buffer Relationship Specialty Start Date End Date Bay Mccullough MD [address] [place] [address] PCP - General Family Medicine 02/17/25 documented as of this encounter
--- OUTSIDE RECORDS SUMMARY | 2025-04-08 16:36 | XMS_ITS | Encounter Summary ---
Author Organization [facility] Address [address] [place] [address] [place] [address] Care Team Providers Care Securities Vault Supervisor Name Role Phone Bay Mccullough MD Primary [...] EDT Office Visit ERIC Dick [facility]BMAG[facility]ALENO [address] [place] [address] Maria M Cummings PA [address] [place] [address] documented as of this encounter Visit Diagnoses Not on filedocumented in this encounter Care Teams Securities Vault Supervisor Relationship Specialty Start Date End Date Bay Mccullough MD [address] [facility] [place] [address] PCP - General Family Medicine 02/17/25 documented as of this encounter
--- OUTSIDE RECORDS SUMMARY | 2025-04-08 16:36 | XMS_ITS | Encounter Summary ---
Author Organization [facility] Address [address] [place] [address] [place] [address] Care Team Providers Care Eviction Specialist Name Role Phone aBy Mccullough MD Primary Care Provider [phone] Encounter Details Date Type Department Care Team (Late st Contact Info) Description 04/08/2025 Clinisync Result Encounter NOMS External Department Unsolicited Tatyana Red DO [address] Timmy [place], [facility]11 Social History Tobacco Use Types Packs/Day [...] 05/07/2025 10:30 AM EDT Office Visit NOMSho [facility] [address] [place] [address] Maria M Cummings PA [address] [place] [address] documented as of this encounter Procedures Procedure Name Priority Date/Time Associated Diagnosis Comments XR CHEST 2V 04/08/2025 11:33 AM EDT documented in this encounter Results * XR CHEST 2V (04/08/2025 11:33 AM EDT) Anatomical Region Laterality Modality Other 04/08/2025 11:3 3 AM EDT Narrative 04/08/2025 11:36 AM EDT [address] [address] XRay Report Signed Patient: MADALYN DEVINE MR#: [id number] : 1980 Acct:[id number] Age/Sex: 44 / F ADM Date: 04/08/25 Loc: [facility] Attending Dr: Tatyana Red D.O. Ordering Physician: Tatyana Red D.O. Date of Service: 04/08/25 Procedure(s): XR chest 2V Accession Number(s): [id number] cc: Tatyana Red D.O.; Bay Mccullough M.D. [address] [address] Patient Name: MADALYN DEVINE MRN: [facility]:[id number] date: 1980 Sex: F Assigned Patient Location: [facility] Current Patient Location: [facility] Accession/Order Number: [id number] Exam Date: 04/08/2025 11:33 Report Date: 04/08/2025 11:33 At the request of: TATYANA RED DO Procedure: XR chest 2V Chest 2 views CLINICAL HISTORY: Preop exam COMPARISON: None FINDINGS: Heart normal in size. Lungs are clear. No free air. XR/XR chest 2V IMPRESSION: NO ACUTE CARDIOPULMONARY ABNORMALITY. Impression dictated by: Boubacar Florian Jr., D.O. 04/08/2025 11:33 AM Dictation Location: [place] [address] Electronically authenticated by: [id number] Y Date: 04/08/2025 11:33 Dictated By: Boubacar Florian M.D. Signed By: 04/08/25 1136 DD/ 1133 TD/TT: Drapery Counselor: Procedure Note Radiology, Radiologist, - 04/08/2025 The [place] [id number] XRay Report Signed Patient: MADALYN DEVINE AMR#: [id number] : 1980Acct:[id number] Age/Sex: 44 / FADM Date: 04/08/25 Loc: PST Attending Dr: Tatyana Red D.O. Ordering Physician: Tatyana Red D.O. Date of Service: 04/08/25 Procedure(s): XR chest 2V Accession Number(s): [id number] cc: Tatyana Red D.O.; Bay Mccullough M.D. [address] [address] Patient Name: MADALYN DEVINE MRN: [id number] date: 1980 Sex: F Assigned Patient Location: [facility] Current Patient Location: [facility] Accession/Order Number: [id number] Exam Date: 04/08/2025 11:33 Report Date: 04/08/2025 11:33 At the request of: TATYANA RED DO Procedure: XR chest 2V Chest 2 views CLINICAL HISTORY: Preop exam COMPARISON: None FINDINGS: Heart normal in size. Lungs are clear. No free air. XR/XR chest 2V IMPRESSION: NO ACUTE CARDIOPULMONARY ABNORMALITY. Impression dictated by: Boubacar Florian Jr., D.O. 04/08/2025 11:33 AM Dictation Location: [place] [address] Electronically authenticated by: [id number] Y Date: 1:33 Dictated By: Boubacar Florian M.D. Signed By:04/08/25 1136 DD/ 1133 TD/TT: Drapery Counselor: Tatyana Red DO [facility] Final Result documented in this encounter Visit Diagnoses Not on filedocumented in this encounter Care Teams Eviction Specialist Relationship Specialty Start Date End Date Bay Mccullough MD [address] [place] [address] PCP - General Family Medicine 02/17/25 documented as of this encounter
== END 2025-03-25 16:34 | disposition home or self-care (01) ==
LOC: LAB 16:33
PROVIDERS: PCP Family Medicine; Visit Provider Obstetrics & Gynecology
DX: N92.0 Excessive and frequent menstruation with regular cycle (principal)

== ENCOUNTER 2025-04-08 10:53 | Outpatient (OUT) | payer BC, SELFPAY ==
--- OUTSIDE RECORDS SUMMARY | 2024-12-03 09:00 | XMS_ITS | Continuity of Care Document ---
Author Organization [facility] Address [address] [place] [address] Phone Care Team Providers Care Roller Repairer Name Role Phone Sandip Roberson MD Unavailable [...] Diagnoses Date Provider Providers Copied on [facility], [address] [facility] [place], [place], [id number], [place] tel:[phone] [facility] Follow Up of ear (chief complaint) Myringotomy tube(s) statusEustachi an tube disorder of right ear 5 Karol Oropeza. [address] [facility] [place], [place], [address], [place]. tel:[phone] Referring Provider: Janett Zuniga, Myriam4 [facility] [place], [address]. tel:[phone] [facility], [address] [place], [id number], [place] tel:[phone] [facility] Ear Concerns (chief complaint) Unspecified Eustachian tube disorder, left ear 5 Metgenoveva Oropeza. [address] [place], [place], [address], [place]. tel:[phone] Referring Provider: Myriam Lucas4 [facility] [place], [address]. tel:[phone] [facility], [address] [facility] [place], [place], [address], [place] tel:[phone] [facility] No Information 4 Chela Hopkins. [address] [facility], [address], [place], [place], [address], [place]. [phone] Referring Provider: Janett Zuniga, [address] [facility], [facility] [place], [address]. tel:[phone] OFFICE/OUTPA TIENT VISIT, [facility], [address] [facility], [place], [place], [id number], [place] tel:[phone] [facility] Follow Up of hearing. (chief complaint) Pulsatile tinnitus, left earSensorineur al hearing loss, unilateral, left ear, with restricted hearing on the contralateral side 2 Fady Pittman. [address] [facility], [place], [place], [id number], [place]. tel:[phone] Referring Provider: Janett Zuniga, [address] [facility], [place], [address]. tel:[phone] OFFICE/OUTPA TIENT VISIT, [facility], [address] , [place], [place], [id number], [place] tel:[phone] [facility] Follow Up of hearing. (chief complaint) Pulsatile tinnitus, left earSensorineur al hearing loss, unilateral, left ear, with restricted hearing on the contralateral sideSudden idiopathic hearing loss, left ear 2 Fady Pittman. [address] [facility], [place], [place], [id number], [place]. tel:[phone] Referring Provider: Janett Zuniga, [address] [facility], [place], [address]. tel:[phone] [place] [facility], [address] [facility], [place], [place], [id number], [place] tel:[phone] [facility] No Information 2 Chela Hopkins. [address] [facility], [address], [place], [place], [id number], [place]. tel:[phone] Referring Provider: Sandeep York, [address] [facility] [address], [place], [address]. tel:[phone] OFFICE/OUTPA TIENT VISIT, [facility], [address], [place], [place], [address], [place] tel:[phone] [facility] pulse left ear. (chief complaint) Patulous Eustachian tube, left earPulsatile tinnitus, left earMixed conductive and sensorineural hearing loss, unilateral, right ear with restricted hearing on the contralateral sideSensorineu ral hearing loss, unilateral, left ear, with restricted hearing on the contralateral side 2 Chela Hopkins. [address] [facility], [address], [place], [place], [id number], [place]. tel:[phone] Referring Provider: Sandeep York, [address] [facility] [address], [place], [address]. tel:[phone] Family History Family Member Type Diagnosis Age [...] mellitus Payers Payer name Insurance type Covered constitution party ID Authoriza tibonny(s) [employer]age [id number] Social History Type Description Quantity Date Captured [...]
--- OUTSIDE RECORDS SUMMARY | 2025-03-19 20:00 | XMS_ITS | Continuity of Care Document ---
Author Organization [facility] Address [address] [place] [address] Phone Care Team Providers Care Environmental Programs Manager Name Role Phone John Briones MD Unavailable [...] Date OBSTETRICAL CARE MED LIST DOCD IN [facility] URINALYSIS NONAUTO W/O SCOPE DIAST BP >= 90 MM HG SYST BP >= 140 MM HG6 IT BIOPHYS PROFIL W/O NST ANTEPARTUM VISIT INSURANCE MED LIST DOCD IN [facility] URINALYSIS NONAUTO W/O SCOPE SYST BP >= 140 MM HG6 IT DIAST BP 80-89 MM HG ANTEPARTUM VISIT INSURANCE BIOPHYS PROFIL W/O NST OB US, FOLLOW-UP, PER FETUS MED LIST DOCD IN [facility] SYST BP GE 130 - 139MM HG DIAST BP 80-89 MM HG URINALYSIS NONAUTO W/O SCOPE BIOPHYS PROFIL W/O NST ANTEPARTUM VISIT INSURANCE MED LIST DOCD IN [facility] URINALYSIS NONAUTO W/O SCOPE DIAST BP 80-89 MM HG SYST BP LT 130 MM HG ANTEPARTUM VISIT INSURANCE BIOPHYS PROFIL W/O NST OB US, FOLLOW-UP, PER FETUS MED LIST DOCD IN [facility] URINALYSIS NONAUTO W/O SCOPE ANTEPARTUM VISIT INSURANCE SUBSEQUENT CARE DIAST BP 80-89 MM HG SYST BP LT 130 MM HG MED LIST DOCD IN [facility] FLOW SHEET ANTEPARTUM VISIT INSURANCE SUBSEQUENT CARE SYST BP LT 130 MM HG DIAST BP < 80 MM HG OB US, FOLLOW-UP, PER FETUS ANTEPARTUM VISIT MEDICAID GLUCOSE TOLERANCE TEST (GTT) SUBSEQUENT CARE MED LIST DOCD IN [facility] DIAST BP < 80 MM HG SYST BP LT 130 MM HG GLUCOSE Tolerance TEST ASSAY, GLUCOSE, BLOOD QUANT FLOW SHEET ANTEPARTUM VISIT MEDICAID MED LIST DOCD IN [facility] OB US >/= 14 WKS, SNGL FETUS SYST BP LT 130 MM HG DIAST BP < 80 MM HG ANTEPARTUM VISIT INSURANCE SUBSEQUENT CARE OB US >/= 14 WKS, SNGL FETUS MED LIST DOCD IN [facility] DIAST BP < 80 MM HG SYST BP LT 130 MM HG BRIEF EMOTIONAL/BEHAV ASSMT Alcohol/subs interv 15-30mn (Medicare) INITIAL CARE VISIT OFFICE/OUTPATIENT VISIT EST, ANTIPARTUM MEDICAID URINE (HCG) URINALYSIS NONAUTO W/O SCOPE MED LIST DOCD IN [facility] SYST BP LT 130 MM HG DIAST BP >= 90 MM HG ROUTINE VENIPUNCTURE [place] Advance Directives Directive Yes / No Effective Date File Name No Information Encounters Encounter Description Practice Location Reason(s) For Visit Diagnoses Date Provider Providers Copied on Encounter [facility], [address], [place], [address], [place] tel: [phone] [facility] No Information [facility]. [address], [place], [place], [id number] , [place]. tel:+ [phone] [facility], [address], [place], [address], [place] tel:+ [phone] [facility] routine (chief complaint) Supervision of high risk , 3rd trimesterSupervision of elderly multigravida, third [id number] weeks gestation of pregnancyBody mass index (BMI) 32.0-32.9, adult [facility]. [address], [place], [address], [place]. tel:+ [phone] [facility], [address], [place], [address], [place] tel: [phone] [facility] routine (chief complaint) Supervision of high risk , 3rd trimesterHypertensio n37 weeks gestation of pregnancyBody mass index (BMI) 32.0-32.9, adult 5 [facility]. [address], [place], [address], [place]. tel: [phone] [facility], [address], [place], [address], [place] tel: [phone] [facility] routine (chief complaint) Body mass index (BMI) 32.0-32.9, adult37 weeks gestation of pregnancySupervision of high risk , 3rd trimesterSupervision of elderly multigravida, third trimesterHypertensio n 5 [facility]. [address], [place], [address], [place]. tel: [phone] [facility], [address], [place], [address], [place] tel: [phone] [facility] routine (chief complaint) Supervision of high risk , 3rd trimesterEncounter for screening for group B StrepEncounter for screening for infections with a predominantly sexual mode of zvuprwzlnwew78 weeks gestation of 0 5 [facility]. [address], [place], [address], [place]. tel:+ [phone] [facility], [address], [place], [address], [place] tel:+ [phone] [facility] routine (chief complaint) Supervision of high risk , 3rd bynifiqtd73 weeks gestation of pregnancySupervision of elderly multigravida, third trimesterBody mass index (BMI) 32.0-32.9, adult Emmanuel-0 5 [facility]. [address], [place], [address], [place]. tel:[phone] [facility], [address], [place], [address], [place] tel:[phone] [facility] routine (chief complaint) Body mass index (BMI) 32.0-32.9, adultSupervision of elderly multigravida, third weeks gestation of 5 [facility]. [address], [place], [place], [id number] , [place]. tel:[phone] [facility], [address], [place], [address], [place] tel:[phone] [facility] No Information 5 Karen Block. [address], [place], [address], [place]. tel:[phone] [facility], [address], [place], [address], [place] tel:[phone] [facility] routine (chief complaint) Body mass index (BMI) 31.0-31.9, adultSupervision of high risk , 3rd [id number] weeks gestation of pregnancyAbnormal glucose 0 [facility]. [address], [address], [place], [place], [id number] , [place]. tel:[phone] [facility], [address], [place], [address], [place] tel:[phone] [facility] No Information 5 [facility]. [address], [place], [place], [id number] , [place]. tel:[phone] [facility], [address], [place], [address], [place] tel:[phone] [facility] routine (chief complaint) Supervision of elderly multigravida, second [id number] weeks gestation of pregnancyAbnormal glucose 5 [facility] Cotton. [address], [address], [place], [place], [id number] , [place]. tel: [phone] [facility], [address], [place], [address], [place] tel: [phone] [facility] routine (chief complaint) Supervision of other high risk pregnancies, second weeks gestation of pregnancyEncounter for screening for malformationsTobacco abuse counselingHypertensi onBody mass index (BMI) 32.0-32.9, adultEncounter for screening for non-visualized anatomy on a previous scan 5 Karen Mckayla. [address], [place], [address], [place]. tel: [phone] [facility], [address], [place], [address], [place] tel: [phone] [facility] routine (chief complaint) Supervision of other high risk pregnancies, second [id number] weeks gestation of pregnancyEncounter for screening, unspecifiedBody mass index (BMI) 31.0-31.9, adultEncounter for screening for infections with a predominantly sexual mode of transmissionTobacco abuse counselingEncounter for screening for maternal depressionEncounter for screening for other disorder 5 Karen Martiicia. [address], [place], [address], [place]. tel: [phone] [facility], [address], [place], [address], [place] tel: [phone] [facility] (chief complaint) Encounter for test, result positiveBody mass index (BMI) 32.0-32.9, adult 5 [facility]. [address], [place], [place], [id number] , [place]. tel: [phone] Family History Family Member Type Diagnosis Age At Onset Father Problem 25% of heart was diseased Mother Problem hypertension Mother Problem bi polar, schizophrenic Father Problem Parkinson's Father Problem hypertension Father Problem liver, bone, brain, lung, sk in & prostate cancer Payers Payer name Insurance type Covered constitution party ID Moreno serrano(s) [facility] Choice Plan CI [id number] Social History Type Description Quantity Date Captured Comments Sex Female Smoking Status No Information Chief Complaint And Reason For Visit No Information Reason For Referral Reason For Referral No Information Plan Of Treatment Date Type Action Status Goal Urinalysis due Goal HIV screen due [...] due Goal BMI. Due on due Goal Urinalysis due Goal Tobacco screenin [...] Image guide d. Due on due Goal Depression scree vikram. Due on due Goal PAP. Due on due Goal Pap, Image guide d, C. trach/N. joseph/T. vag ALECIA. Due on due Goal BMI. Due on due Goal BMI Adult Follow -Up. Due on due Goal Tobacco Follow-U p. Due on due Goal Pap, Image guide d, HPV Age Guideline (Aptima) Plus C. trach/N. joseph/T. vag. Due on due Goal HIV screen due Goal Depression Follo w-Up. Due on due Goal Tobacco screenin g. Due on due Goal Pap, Image guide d, HPV Age Guideline ACOG. Due on due Goal Urinalysis due Goal [...] Image guide d. Due on due Goal Urinalysis due Goal Lifestyle educat ion regarding diet completed Goal Tobacco Follow-U p. Due on due Goal BMI Adult Follow -Up. Due on due Goal Pap, Image guide d, HPV Age Guideline ACOG. Due on due Goal Depression scree vikram. Due on due Goal Urinalysis due Goal Depression Follo w-Up. Due on [...] on due Goal HIV screen due Goal BMI. Due on due Goal [...] Due on due Goal Urinalysis due Goal Pap, Image guide d, HPV Age Guideline (Aptima) Plus C. trach/N. joseph/T. vag. Due on due Goal Depression scree vikram. Due on due Goal Lifestyle educat ion regarding diet [...] Goal Urinalysis due Goal Urinalysis due Goal PAP. Due on due Goal Tobacco screenin g. Due on due Goal Pap, Image guide d. Due on due Goal Depression scree vikram. [...] completed Goal Tobacco cessation counseling completed Goal PAP. Due on due Goal Pap, [...] Lab Order Protein and Creatinine, Random Urine ([id number]), Ordered on: Ordered Future Order: Lab Order Gestatio nal Glucose Tolerance (3Hr) ([id number]), Ordered on: Ordered Future Order: Radiology Order [...] been on . She had been seeing [facility] and had an U/S. U/S 10.22.2024 measuring [...]
--- OUTSIDE RECORDS SUMMARY | 2025-03-25 13:30 | XMS_ITS | Encounter Summary ---
Author Organization [facility] Address [address] [place] [address] Care Team Providers Care Manager Welding Name Role Phone Bay Mccullough MD Primary Care Provider [phone] Reason for Visit * Reason Comments Pre-op Visit embx Encounter Details Date Type Department Care Team (Late st Contact Info) Description 03/25/2025 1:30 PM EDT Procedure Visit [facility] [address] [address] Erasmo Red DO [address] [place] [address] Pre-op examination; Menorrhagia with regular cycle; Abnormal [...] on 04-24-[address] Red at [facility]. MEDICATIONS No current outpatient medications ALLERGIES [...] nursing note reviewed. Exam conducted with a tarp repairer present. Vitals: Estimated body mass index is [...] reviewed, and patient is to proceed to [facility] OR. Follow Up: Patient is to [...] Visit [facility] [address] [place] [phone] Maria M Cummings PA [address] [place] [address] documented as of this encounter Procedures Procedure [...] pain documented in this encounter Care Teams Manager Welding Relationship Specialty Start Date End Date Bay Mccullough MD [address] [place] [address] PCP - General Family Medicine 02/17/25 documented as of this encounter
--- OUTSIDE RECORDS SUMMARY | 2025-03-25 20:32 | XMS_ITS | Continuity of Care Document ---
Author Organization [facility] Address [address] [place] [address] Phone Care Team Providers Care Pest Control Worker Helper Name Role Phone Erasmo Red DO Attending Provider Care Teams Patient Care Team Team Status: Inactive Member Role Status Dates Erasmo Red DO Attending Provider Active Start : March 25, 2025 End: March 25, 2025 Chief Complaint and Reason for Visit Chief Complaint Admit Date Unknown March 25, 2025 1:33 pm Social History Smoking Status Status Start Date End Date Date of Observa tion Smokes tobacco daily (finding) February 21, 2023 2:49pm Observation Status Observation Response Date of Response Legal Sex Female (finding) Sex Assigned At Female [birth year] Family History Relationship Condition Age at Onset Recorded Date/T tricia father Unknown Insurance Providers Guarantor Madalyn Hughesks Address [address] [facility] [address] Contact Info. Home Phone: Payer Policy Id Subscriber's Name Subscriber Id Effectiv e Date Expiration Date [facility] [id number] Encounters Encounter Location(s) Arrival/Admit Date Discharge/Depart Date Provider(s) Departed Referred -[facility] March 25, 2025 1:33pm March 25, 2025 1:34pm Erasmo Red
--- OUTSIDE RECORDS SUMMARY | 2025-04-08 10:56 | XMS_ITS | Encounter Summary ---
Author Organization [facility] Address [facility] [place] [address] Care Team Providers Care Director Nursing Service Name Role Phone Ginger Toledo ROUTE SALES SPECIALIST Unavailable [phone] Source Comments In the event this information is protected by the Federal Confidentiality of Alcohol and Drug AbusePatient Records regulations: The Federal rules restrict any use of the information to criminally investigate or prosecute any alcohol or drug abuse patient.[facility] Encounter Details Date Type Department Care Team (Late st Contact Info) Description 09/18/2023 Patient Msg General Surgery [address] [phone] Denice Mustafa LPN [address] [place], [place] [phone] Dr. Rodriguez office Social History Tobacco Use Types Packs/Day Years Used Date Smoking Tobacco: Former Cigarettes Alcohol Use Standard Drinks/Week Comments Not Currently 0 (1 standard drink = 0.6 oz pur e alcohol) once a week Comments Unknown Sex and Gender Information Value Date Recorded Sex Assigned at Female 04/10/2023 11:08 AM EDT Legal Sex Female 11:40 AM EDT Gender Identity Female 04/10/2023 11:08 AM EDT Sexual Orientation Not on file documented as of this encounter Plan of Treatment Not on file documented as of this encounter Visit Diagnoses Not on filedocumented in this encounter Care Teams Director Nursing Service Relationship Specialty Start Date End Date Ginger Toledo CNP [address] [place] [address] Referring Internal Medicine 03/29/23 documented as of this encounter
--- OUTSIDE RECORDS SUMMARY | 2025-04-08 10:56 | XMS_ITS | Encounter Summary ---
Author Organization [facility] Address [address] [place] [address] [place] [address] Care Team Providers Care Educational Programming Director Name Role Phone Bay Mccullough MD Primary Care Provider [phone] Encounter Details Date Type Department Care Team (Late Contact Info) Description 03/25/2025 Abstract [facility] [address] [place] [phone] Erasmo Red DO [address] [place], [facility] Social History Tobacco Use Types Packs/Day Years Used Date Smoking Tobacco: Never Assessed Comments Unknown Sex and Gender Information Value Date Recorded Sex Assigned at Not on file Legal Sex Female 7:19 PM EDT Gender Identity Female 02/16/2025 10:31 AM EDT Sexual Orientation Not on file documented as of this encounter Plan of Treatment Upcoming Encounters Date Type Department Care Team (Late Contact Info) Description 05/07/2025 10:30 AM EDT Office Visit [facility] [address] [place] [address] Maria M Cummings PA [address] [place], [place] [phone] documented as of this encounter Visit Diagnoses Not on filedocumented in this encounter Care Teams Educational Programming Director Relationship Specialty Start Date End Date Bay Mccullough MD [address] [place] [address] PCP - General Family Medicine 02/17/25 documented as of this encounter
--- OUTSIDE RECORDS SUMMARY | 2025-04-08 10:56 | XMS_ITS | Clinical Summary ---
Author Organization [facility] Address [address] [place] [address] Care Team Providers Care Assistant Financial Accountant Name Role Phone Ginger Toledo COMMUNICATIONS MEDIA PROFESSOR Unavailable [phone] Allergies No known active allergies Medications Cholecalciferol , Vitamin D3, (D3-2000) 50 mcg (2,000 unit) cap 12/23/2022 Active ferrous sulfate (IRON) 325 mg (65 mg iron) tablet 12/26/2022 Active CREON 24,000-76,000 -120,000 unit delayed release capsule TAKE DIRECTED ORALLY 5 TIMES DAILY (ALLOW FOR 3 MEALS AND 2 SNACKS. 30 DAYS 03/27/2023 Active Encounters Date Type Department Care Team Description 03/17/2025 [place] [address] Provider, Ccf Sign up to manage your digestive symptoms in between visits, covered by insurance from Last 3 Months Social History Tobacco Use Types Packs/Day Years [...] AM EDT Sexual Orientation Not on file Last Filed Vital Signs Vital Sign Reading Time Taken Comments Blood Pressure 149/73 07/12/2023 4:28 PM EDT Pulse 77 07/12/2023 4:28 PM EDT Temperature 36.7 C (98.1 F) 07/12/2023 2:47 PM EDT Respiratory Rate 16 07/12/2023 4:28 PM EDT Oxygen Saturation 100% 07/12/2023 4:28 PM EDT Inhaled Oxygen Concentration - - Weight 59 kg (130 lb) 07/12/2023 2:47 PM EDT Height 170.2 cm (5' 7 ) 07/12/2023 2:47 PM EDT Body Mass Index 20.36 07/12/2023 2:47 PM EDT Plan of Treatment Health Maintenance Due Date Last Done Comments Anxiety Screening 1999 Depression Screening 1999 HIV Screening 1999 Hepatitis C Screening 1999 DTaP,Tdap,Td Vaccine (1 - Tdap) 2000 Hepatitis B Vaccine (1 of 3 - 19+ 3-dose series) 10/02 Cervical Cancer Screening 2002 Mammogram Screening 2021 Influenza Vaccine (#1) 2025 Insurance BLUE CARD PPO OOS Care Teams Assistant Financial Accountant Relationship Specialty Start Date End Date Ginger Toledo CNP [address] [place] [address] Referring Internal Medicine 03/29/23
--- OUTSIDE RECORDS SUMMARY | 2025-04-08 10:56 | XMS_ITS | Encounter Summary ---
Author Organization [facility] Address [address] [place] [address] Care Team Providers Care Supervisor Wrapping Room Name Role Phone Bay Mccullough MD Primary Care Provider [phone] Encounter Details Date Type Department Care Team (Latest Contact Info) Description 03/25/2025 Travel Social History Tobacco Use Types Packs/Day Years [...] Description 05/07/2025 10:30 AM EDT Office Visit ERIC Dick OBMAGDALENO [address] [place] [address] Maria M Cummings PA [address] [place] [address] documented as of this encounter Visit Diagnoses Not on filedocumented in this encounter Care Teams Supervisor Wrapping Room Relationship Specialty Start Date End Date Bay Mccullough MD [address] [place] [facility] [address] PCP - General Family Medicine 02/17/25 documented as of this encounter
--- OUTSIDE RECORDS SUMMARY | 2025-04-08 10:56 | XMS_ITS | Clinical Summary ---
Author Organization [facility] Address [address] [place] [address] [address] Care Team Providers Care Welding Machine Operator Friction Name Role Phone Bay Mccullough MD Primary Care Provider [phone] Allergies No known active allergies Medications estradiol (Estrace) 0.1 MG/GM vaginal creamIndication s:Hormone imbalance Insert 2 g into the vagina at bedtime At bedtime for 2 weeks, then at bedtime twice a week. 42.5 g 02/17/2025 03/19/20 25 Encounters Date Type Department Care Team Description 03/25/2025 1:30 PM EDT [place] [address] Erasmo Red DO Pre-op examination; Menorrhagia with regular cycle; Abnormal uterine bleeding (AUB); Pelvic pain 03/25/2025 [place] [address] Erasmo Red DO 03/25/2025 External Result Encounter [facility] External Department Unsolicited Erasmo Red DO 03/25/2025 Travel 02/26/2025 [place] [address] Renu Valera MA 02/25/2025 9:30 AM EDT Ancillary [place] [address] Menorrhagia with regular cycle 02/25/2025 Clinisync Result Encounter NOMS External Department Unsolicited Maria M Cummings PA 02/24/2025 Travel 02/17/2025 9:00 AM EDT Office Visit [facility] [address] [place] [address] Maria M Cummings PA Well woman exam with routine gynecological exam; Breast cancer screening by mammogram; Hormone imbalance; Menorrhagia with regular cycle 02/17/2025 Clinisync Result Encounter [facility] External Department Unsolicited Maria M Cummings PA 02/17/2025 Bamboo flowsheet [facility] [address] [place] [phone] Maria M Cummings PA 02/16/2025 Travel from Last 3 Months Family History Medical History Relation Name Comments Cancer Father Blood Rheum arthritis Father Thyroid disease Mother Cervical cancer Mother's Sister Breast cancer Paternal Grandmother mastec aroldo Relation Name Status Comments Father Mother Mother's Sister Paternal Grandmother Social History Tobacco Use Types Packs/Day Years [...] 8 oz) 03/25/2025 1:42 PM EDT Height 170.2 cm (5' 7 ) 02/17/2025 9:21 AM EDT Body Mass Index 21.22 02/17/2025 9:21 AM EDT Plan of Treatment Upcoming Encounters Date Type Department Care Team (Late st Contact Info) Description 05/07/2025 10:30 AM EDT Office Visit [facility] [address] [place] [address] Maria M Cummings PA [address] [place] [address] [address] [place], [facility] Procedures Procedure Name Priority Date/Time Associated Diagnosis Comments POCT , URINE Routine 03/25/2025 1:49 PM EDT Pre-op examination PATHOLOGY REQUEST FOR LAB MESHA Routine 03/25/2025 12:00 AM EDT TBH PREG QUANT HCG Routine 02/25/2025 10 :22 AM EDT ALL THYROID STIM HORMONE Routine 02/25/2025 10:22 AM EDT ALL THYROXINE (T4) FREE Routine 02/25/2025 10:22 AM EDT MLR HEMOGLOBIN A1C Routine 02/25/2025 10 :22 AM EDT ALL CBC WITH AUTO DIFF Routine 02/25/2025 10:22 AM EDT [facility] APTT Routine 02/25/2025 10:22 AM EDT [facility] PROTHROMBIN TIME INR W/O COUM Routine 02/25/2025 10:22 AM EDT US PELVIC COMPLETE W/ TV Routine 02/25/2025 9:53 AM EDT Menorrhagia with regular cycle IGP,APTIMA HPV,AGE GDLN Routine 02/17/2025 9:10 AM EDT PAP SMEAR Routine 02/17/2025 12:00 AM EDT from Last 3 Months Results * POCT , urine manually resulted (03/25/2025 1:49 PM EDT) Preg Test, Ur Negative Negative Urine 03/25/2025 1:49 PM EDT us Erasmo Neda DO POINT OF CARE TEST ENTER/EDIT OR DERABLES Final Result * PATHOLOGY REQUEST FOR LAB MESHA (03/25/2025 12:00 AM EDT) PATHOLOGY REQUEST FOR LAB MESHA 04/01/2025 7:50 AM EDT [facility] Comment:See report. Scanned copy available in EMR. Other Topography unknown / Unknown 03/25/2025 03/26/2025 10:05 AM EDT Narrative [facility] - 04/01/2025 7:50 AM EDT EMBX Erasmo Red DO LAB BLOOD ORDERABLES Final Resul t Performing Organization Address City/[facility]/ZIP Co de Phone Number [facility] [address] [place] [address], [facility] [address] [place] [address] * TBH PREG QUANT HCG (02/25/2025 10:22 AM EDT) Pathologist [facility] HCG QUANTITATIVE <1 mIU/mL TB Comment: 5-50 0.2-1 WEEK 50-500 1-2 WEEKS 100-5,000 2-3 WEEKS 500-10,000 3-4 WEEKS 1,000-50,000 4-5 WEEKS 10,000-100,000 5-6 WEEKS 15,000-200,000 6-8 WEEKS 10,000-100,000 2-3 MONTHS 02/25/2025 10:2 2 AM EDT 02/25/2025 10:24 AM EDT Narrative [facility] - 02/25/2025 11:49 AM EDT Maria M CANALES [facility] Final Result [facility] TB * [facility] PROTHROMBIN TIME INR W/O COUM (02/25/2025 10:22 AM EDT) PROTHROMBIN TIME 10.9 9.0 - 11.6 sec TBH TBH INR 1.03 TBH Comment: DESIRED INR: 2.0-3.0 CONDITIONS NOT LISTED BELOW 2.5-3.5 FOR PROSTHETIC HEART VALVE REPLACEMENT 2.5-3.5 RECURRENT THROMBOSIS 02/25/2025 10:2 2 AM EDT 02/25/2025 10:24 AM EDT Narrative [facility] - 02/25/2025 11:00 AM EDT Maria M PENG Final Result Performing Organization Address [facility] Co de Phone Number [facility] * MLR HEMOGLOBIN A1C (02/25/2025 10:22 AM EDT) GLYCOHEMOGLOBIN A1C 5.5 4.5 - 6.2 % [facility] Comment: ADA RECOMMENDED LIMIT 4.0 - 6.0 ADA THERAPEUTIC TARGET < 7.0 ACTION SUGGESTED > 7.0 ESTIMATED AVERAGE GLUCOSE 111 mg/dL TB 02/25/2025 10:2 2 AM EDT 02/25/2025 10:24 AM EDT Narrative [facility] - 02/25/2025 11:35 AM EDT Maria M PENG Final Result Performing Organization Address [facility] de Phone Number [facility] * [facility] APTT (02/25/2025 10:22 AM EDT) PARTIAL THROMBOPLASTIN TIME 25.4 22.3 - 36.2 sec [facility] 02/25/2025 10:2 2 AM EDT 02/25/2025 10:24 AM EDT Narrative [facility] - 02/25/2025 11:00 AM EDT Maria M PENG Final Result Performing Organization Address [facility] de Phone Number [facility] * ALL THYROXINE (T4) FREE (02/25/2025 10:22 AM EDT) FREE T4 0.91 0.76 - 1.46 ng/dL TB 02/25/2025 10:2 2 AM EDT 02/25/2025 10:24 AM EDT Narrative [facility] - 02/25/2025 11:44 AM EDT us Maria M CANALES [facility] Final Result [facility] * ALL THYROID STIM HORMONE (02/25/2025 10:22 AM EDT) THYROID STIMULATING HORMONE 1.470 0.358 - 3.740 uIU/mL TBH 02/25/2025 10:2 2 AM EDT 02/25/2025 10:24 AM EDT Madeline [facility] - 02/25/2025 11:49 AM EDT us Maria M HENDERSONISYBOBO Final Result Performing Organization Address [facility] Co de Phone Number [facility] TB * (ABNORMAL) ALL CBC WITH AUTO DIFF (02/25/2025 10:22 AM EDT) Pathologist [facility] TB WBC 10.1 4.0 - 11.0 10 3/uL TBH TBH RBC 4.40 4.20 - 5.40 10 6/uL TBH TBH HGB 12.7 12.0 - 16.0 g/dL TB TB HCT 38.1 36.0 - 48.0 % TBH TBH MCV 86.6 81.0 - 99.0 fL TBH TB MCH 28.9 26.7 - 34.0 pg TBH TBH MCHC 33.3 29.9 - 35.2 g/dL TBH TB RDW 13.1 11.0 - 15.0 % TBH TBH PLT 253 150 - 450 10 3/uL TBH TBH MPV 11.9 9.5 - 13.5 fL TBH NEUTROPHILS PERCENT AUTO 77.8(H) 43.0 - 75.0 % TBH LYMPHOCYTES PERCENT AUTO 14.9(L) 20.5 - 60.0 % TBH MONOCYTES PERCENT AUTO 4.2 1.7 - 12.0 % TBH TBH EO % 2.3 0.9 - 7.0 % TBH BASOPHILS PERCENT AUTO 0.5 0.2 - 2.0 % TBH IMMATURE GRANULOCYTES PCT AUTO 0.3 0.0 - 0.5 % TBH NEUTROPHILS ABSOLUTE AUTO 7.9(H) 1.4 - 6.5 10 3/uL TBH LYMPHOCYTES ABSOLUTE AUTO 1.5 1.2 - 3.8 10 3/uL TBH MONOCYTES ABSOLUTE AUTO 0.4 0.3 - 0.8 10 3/uL TBH TBH EO # 0.2 0.0 - 0.7 10 3/uL TBH BASOPHILS ABSOLUTE AUTO 0.1 0.0 - 0.1 10 3/uL TBH IMMATURE GRANULOCYTES ABS AUTO 0.03 0.00 - 0.03 10 3/uL TBH 02/25/2025 10:2 2 AM EDT 02/25/2025 10:24 AM EDT Narrative [facility] - 02/25/2025 11:03 AM EDT us Maria M PENG Final Result [facility] * US Pelvis w/ TV (02/25/2025 9:53 AM EDT) Anatomical Region Laterality Modality Pelvis Ultrasound 02/27/2025 6:15 AM EDT Narrative 02/27/2025 6:15 AM EDT EXAM: US PELVIC COMPLETE W/ TV HISTORY: Generalized cramping, painful periods and intercourse x 4 months. COMPARISON: None available. TECHNIQUE: Two-dimensional transabdominal grayscale ultrasound imaging of the pelvis was performed. Color flow Doppler imaging of the ovaries was also performed. Transvaginal was performed. FINDINGS: UTERUS 10.1 x 4.1 x 5.5 cm The uterus is anteverted in position and demonstrates a normal, homogeneous echotexture. ENDOMETRIUM 0.7 cm The endometrium demonstrates a normal, homogeneous echotexture. RIGHT OVARY 2.8 x 2.6 x 2.8 cm The right ovary demonstrates a normal echotexture. There is normal color Doppler flow. LEFT OVARY 3.5 x 2.2 x 2.8 cm The left ovary demonstrates a normal echotexture. There is normal color Doppler flow. There is a 2.5 cm dominant follicle. No fluid is present within the cul-de-sac. IMPRESSION: 1. Unremarkable ultrasound of the pelvis. 2. Normal color Doppler flow within the bilateral ovaries. Interpreted by: Electronically signed by YAMILA MORALES II, MD, PHD at 27-Feb-2025 06:13:44 AM [facility] Procedure Note Yamila Morales MD - 02/27/2025 EXAM: US PELVIC COMPLETE W/ TV HISTORY: Generalized cramping, painful periods and intercourse x 4months. COMPARISON: None available. TECHNIQUE: Two-dimensional transabdominal grayscale ultrasound imaging ofthe pelvis was performed. Color flow Doppler imaging of the ovaries wasalso performed. Transvaginal was performed. FINDINGS: UTERUS 10.1 x 4.1 x 5.5 cm The uterus is anteverted in position and demonstrates a normal,homogeneous echotexture. ENDOMETRIUM 0.7 cm The endometrium demonstrates a normal, homogeneous echotexture. RIGHT OVARY 2.8 x 2.6 x 2.8 cm The right ovary demonstrates a normal echotexture. There is normal colorDoppler flow. LEFT OVARY 3.5 x 2.2 x 2.8 cm The left ovary demonstrates a normal echotexture. There is normal colorDoppler flow. There is a 2.5 cm dominant follicle. No fluid is present within the cul-de-sac. IMPRESSION: 1. Unremarkable ultrasound of the pelvis. 2. Normal color Doppler flow within the bilateral ovaries. Interpreted by: Electronically signed by YAMILA MORALES II, MD, PHD [id number] 06:13:44 AM [facility] us Maria M CANALES [facility] US PROCEDURES Final Result * IGP,APTIMA HPV,AGE GDLN (02/17/2025 9:10 AM EDT) AGE GDLN ACOG TESTING Note . [facility] Comment: TESTS RESULT FLAG UNITS REF RANGE LAB Clinician Provided Cytology Information Source.............Cervix;Endocervix No. of containers..01 ThinPrep Vial Age Yoana REDDY Laurie... 31 01 FLAG LEGEND: L-Low Normal,H-High Normal,LL-Alert Low,HH-Alert High <-Panic Low,>-Panic High,A-Abnormal,AA-Critical Abnormal Performed at: 01 =[facility] [address] Emely Barrera MD, IGP, APTIMA HPV, RFX 16/18,45 Note . [facility] Comment: TESTS RESULT FLAG UNITS REF RANGE LAB DIAGNOSIS: 02 NEGATIVE FOR INTRAEPITHELIAL LESION OR MALIGNANCY. Specimen adequacy: 02 Satisfactory for evaluation. Endocervical and/or squamous metaplastic cells (endocervical component) are present. Performed by: 02 Eva Flores, Brim Flexer [facility] . 02 Note: Note 02 The Pap smear is a screening test designed to aid in the detection of premalignant and malignant conditions of the uterine cervix. It is not a diagnostic procedure and should not be used as the sole means of detecting cervical cancer. Both false-positive and false-negative reports do occur. Test Methodology: Note 02 This liquid based ThinPrep(R) pap test was screened with the use of an image guided system. HPV Genotype Reflex Note 02 Criteria not met, HPV Genotype not performed. FLAG LEGEND: L-Low Normal,H-High Normal,LL-Alert Low,HH-Alert High <-Panic Low,>-Panic High,A-Abnormal,AA-Critical Abnormal Performed at: [address] [address] Emely Barrera MD, HPV APTIMA Negative Negative [facility] Comment: This nucleic acid amplification test detects fourteen high- risk HPV types (16,18,31,33,35,39,45,51,52,56,58,59,66,68) without differentiation. Performed at: =[address] [id number] Video Game Developer: Emely Barrera MD, Phone: [phone] Performed at: [address] [id number] Video Game Developer: Emely Barrera MD, Phone: [phone] 02/17/2025 9:10 AM EDT 02/17/2025 12:19 PM EDT Narrative [facility] - 02/19/2025 5:08 PM EDT BRUSH-SPATULA CERVIX ENDOCERVIX Maria M CANALES LAB BLOOD ORDERABLES Final Resul t Performing Organization Address [facility]/ZIP Co de Phone Number [facility] * Pap Smear (02/17/2025 12:00 AM EDT) Swab Cervical swab / Unknown Maria M CANALES LAB CYTOLOGY ORDERABLES Final Re sult Performing Organization Address [facility]/ZIP Co de Phone Number EXTERNAL LAB from Last 3 Months Insurance BC Care Teams Welding Machine Operator Friction Relationship Specialty Start Date End Date Bay Mccullough MD [address] [place] [phone] PCP - General Family Medicine 02/17/25
--- OUTSIDE RECORDS SUMMARY | 2025-04-08 10:56 | XMS_ITS | Encounter Summary ---
Author Organization [facility] Address [facility] [place] [address] Care Team Providers Care Gravedigger Name Role Phone Ginger Toledo RESEARCH TEST ENGINE EVALUATOR Unavailable [phone] Source Comments In the event this information is protected by the Federal Confidentiality of Alcohol and Drug AbusePatient Records regulations: The Federal rules restrict any use of the information to criminally investigate or prosecute any alcohol or drug abuse patient.[facility] Encounter Details Date Type Department Care Team (Late st Contact Info) Description 03/17/2025 [place] [address] Provider, Ccf Sign up to manage your digestive symptoms in between visits, covered by insurance Social History Tobacco Use Types Packs/Day Years [...] on filedocumented in this encounter Care Teams Gravedigger Relationship Specialty Start Date End Date Ginger Toledo, RESEARCH TEST ENGINE EVALUATOR [address] [place] [id number] Referring Internal Medicine 03/29/23 documented as of this encounter
--- OUTSIDE RECORDS SUMMARY | 2025-04-08 10:56 | XMS_ITS | Patient Health Record ---
Author Organization [facility] in [place] Address [address] [place] [address] Care Team Providers Care Commercial Drone Software Developer Name Role Phone Ginger Toledo Primary Care Provider Allergies No Known Allergies Results Component Value Reference Range Notes IGP,Aptima HPV,Age Gdln Reviewed date:02/19/2025 06:34:14 PM Interpretation: Performing Lab: Notes/Report: BRUSH-SPATULA CERVIX ENDOCERVIX [facility] , Age Gdln ACOG Testing Note . TESTS RESULT FLAG UNITS REF RANGE LAB ---- Clinician Provided Cytology Information Source.............Cervix;En docervix No. of containers..01 ThinPrep Vial Age Algo ACOG Laurie... 30-65 01 ---- FLAG LEGEND: L-Low Normal,H-High Normal,LL-Alert Low,HH-Alert High <-Panic Low,>-Panic High,A-Abnormal,AA-Critical Abnormal ---- Performed at: 01 =G [facility] [address] [facility] [place] [address] Emely Barrera MD, IGP, Aptima HPV, rfx 16/18,45 Note . TESTS RESULT FLAG UNITS REF RANGE LAB ---- DIAGNOSIS: 02 NEGATIVE FOR INTRAEPITHELIAL LESION OR MALIGNANCY. Specimen adequacy: 02 Satisfactory for evaluation. Endocervical and/or squamous metaplastic cells (endocervical component) are present. Performed by: 02 Eva Flores, Family Services Worker ([facility]) . 02 Note: Note 02 The Pap [...] Criteria not met, HPV Genotype not performed. ---- FLAG LEGEND: L-Low Normal,H-High Normal,LL-Alert Low,HH-Alert High <-Panic Low,>-Panic High,A-Abnormal,AA-Critical Abnormal ---- Performed at: 02 WB [facility] [address] [facility] [address] Emely Barrera MD, HPV Aptima Negative Negative This nucleic acid amplification test detects fourteen high- risk HPV types (16,18,31,33,35,39,45,51,52, 56,58,59,66,68) without differentiation. Performed at: =G - [facility] [address] [id number] Iron Assorter: Emely Barrera MD, Phone: [phone] Performed at: - [facility] [id number] Iron Assorter: Emely Barrera MD, Phone: [phone] Performing Lab: see note - [facility] LB CBC AUTO DIFF Reviewed date:02/25/2025 05:29:31 PM Interpretation: Performing Lab: Notes/Report: [facility] , White Blood Count 10.1 4.0-11.0 10 3/uL Red Blood Count 4.40 4.20-5.40 10 6/uL Hemoglobin 12.7 12.0-16.0 g/dL Hematocrit 38.1 36.0-48.0 % Mean Corpuscular Volume 86.6 81.0-99.0 fL Mean Corpuscular Hemoglobin 28.9 26.7-34.0 pg Mean Corpuscular HGB Conc 33.3 29.9-35.2 g/dL Red Cell Distribution Width 13.1 11.0-15.0 % Platelet Count 253 150-450 10 3/uL Mean Platelet Volume 11.9 9.5-13.5 fL Neutrophils Percent Auto 77.8 43.0-75.0 % Lymphocytes Percent Auto 14.9 20.5-60.0 % Monocytes Percent Auto 4.2 1.7-12.0 % Eosinophils Percent Auto 2.3 0.9-7.0 % Basophils Percent Auto 0.5 0.2-2.0 % Immature Granulocytes Pct Auto 0.3 0.0-0.5 % Neutrophils Absolute Auto 7.9 1.4-6.5 10 3/uL Lymphocytes Absolute Auto 1.5 1.2-3.8 10 3/uL Monocytes Absolute Auto 0.4 0.3-0.8 10 3/uL Eosinophils Absolute Auto 0.2 0.0-0.7 10 3/uL Basophils Absolute Auto 0.1 0.0-0.1 10 3/uL Immature Granulocytes Abs Auto 0.03 0.00-0.03 10 3/uL Performing Lab: see note ML - [facility] FREE T4 Reviewed date:02/25/2025 05:29:31 PM Interpretation: Performing Lab: Notes/Report: [facility] , Free T4 0.91 0.76-1.46 ng/dL Performing Lab: see note ML - [facility] GLYCOHEMOGLOBIN A1C Reviewed date:02/25/2025 05:29:31 PM Interpretation: Performing Lab: Notes/Report: [facility] , Glycohemoglobin A1C 5.5 4.5-6.2 % ADA RECOMMENDED LIMIT 4.0 - 6.0 ADA THERAPEUTIC TARGET < 7.0 ACTION SUGGESTED > 7.0 Estimated Average Glucose 111 Performing Lab: see note ML - [facility] PTT Reviewed date:02/25/2025 05:29:31 PM Interpretation: Performing Lab: Notes/Report: [facility] , Partial Thromboplastin Time 25.4 22.3-36.2 sec Performing Lab: see note ML - [facility] Prothrombin Time INR Reviewed date:02/25/2025 05:29:31 PM Interpretation: Performing Lab: Notes/Report: [facility] , Prothrombin Time 10.9 9.0-11.6 sec INR 1.03 DESIRED INR: 2.0-3.0 CONDITIONS NOT LISTED BELOW 2.5-3.5 FOR PROSTHETIC HEART VALVE REPLACEMENT 2.5-3.5 RECURRENT THROMBOSIS Performing Lab: see note ML - [facility] TSH Reviewed date:02/25/2025 05:29:31 PM Interpretation: Performing Lab: Notes/Report: [facility] , Thyroid Stimulating Hormone 1.470 0.358-3.740 u IU/mL Performing Lab: see note ML - [facility] PREG QUANT HCG Reviewed date:02/25/2025 05:29:31 PM Interpretation: Performing Lab: Notes/Report: [facility] , HCG Quantitative <1 5-50 0.2-1 WEEK 50-500 1-2 WEEKS 100-5,000 2-3 WEEKS 500-10,000 3-4 WEEKS 1,000-50,000 4-5 WEEKS 10,000-100,000 5-6 WEEKS 15,000-200,000 6-8 WEEKS 10,000-100,000 2-3 MONTHS Performing Lab: see note ML - [facility] LB Reason For Referral No Information Social History Tobacco Use: Social History Observation Description Date Details (start date - stop date) Current Smoker NA - NA Tobacco Use/Smoking Question Answer Notes Patient is a current smoker How often do you smoke cigarettes? every day How many cigarettes a day do you smoke? 6-10 How soon after you wake up do you smoke your fir st cigarette? 6-30 minutes Are you interested in quitting? Not ready to tiana t Alcohol Screen (Audit-C) Question Answer Notes Did you have a drink contain ing alcohol in the past year? Yes How often did you have 6 or more drinks on one occasion in the past year? Monthly or less (1 point) How many drinks did you have on a typical day when you were drinking in the past year? 3 or 4 drinks (1 point) How often did you have a dri nk containing alcohol in the past year? Daily or almost daily (4 points) Points 6 Interpretation Positive Problems Problem Type SNOMED Code ICD Code Onset Dates Problem Status W/U Status Risk Notes Problem 872904842 Irritable bowel syndrome with diarrhea (K58.0) Active confirmed Problem Cigarette smoker (84387849) Cigarette smoker (F17.210) Active confirmed Problem Carpal tunnel syndrome (88197925) Carpal tunnel syndrome (G56.00) Active confirmed Problem Anxiety (35820118) Anxiety (F41.9) Active confirmed Problem Insomnia (586109256) Insomnia (G47.00) Active confirmed Problem 81287356 Vitamin D deficiency (E55.9) Active confirmed Problem Bronchitis (32996454) Bronchitis (J40) Active confirmed Problem Acute bronchitis (22015722) Acute bronchitis (J20.9) Active confirmed Problem Irritable bowel syndrome (06323204) Irritable bowel syndrome (K58.9) Active confirmed Problem Skin sensation disturbance (80208867) Paresthesias/numb ness (R20.9) Active confirmed Problem Elevated blood pressure reading without diagnosis of hypertension (680855895) Elevated blood pressure (not hypertension) (R03.0) Active confirmed Problem Radial styloid tenosynovitis (97443777) Radial styloid tenosynovitis (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) Active confirmed Problem 72227644 Iron deficiency anemia, unspecified iron deficiency anemia type (D50.9) Active confirmed Plan Of Treatment Pending Test Test Name Order Date CMP (COMPLETE METABOLIC PANEL) 3 HEMOGLOBIN A1C (GLYCO) 12/20/2022 IRON, TOTAL 03/29/2023 IRON, TOTAL 12/20/2022 LIPID PANEL (CHOL/TRIG/HDL/LDL) 12/21/19 23 CBC WITH DIFF 12/20/2022 CBC WITH DIFF 03/29/2023 VITAMIN D, 25 LEVEL (TOTAL) 03/29/2023 VITAMIN D, 25 LEVEL (TOTAL) 12/20/2022 FTI 12/20/2022 Insulin Level 12/20/2022 PT - INR 12/20/2022 STOOL OCCULT BLOOD 12/20/2022 IRON 12/25/2022 VITAMIN D 25 [place] 12/25/2022 THYROID PANEL (T4/TSH/FREE T3) 3 Insurance Providers Payer Name Payer Address Payer Phone Subscriber Number Group Number Insured Name Patient Relationship to Insured Coverage Start Date Coverage End Date ANTHEM ACCESS PPO PLUS LOCAL PLAN [address] [place] [address] [id number] Madalyn Aguilar Self - patient is the insured Medical (General) History Medical History History ICD Code Elevated blood pressure (not hypertensio n) R03.0 Irritable bowel syndrome K58.9 Anxiety F41.9 Radial styloid tenosynovitis M65.4 Acute bronchitis J20.9 Carpal tunnel syndrome G56.00 Paresthesias/numbness R20.9 Cigarette smoker F17.210 Insomnia G47.00 Bronchitis J40 Surgical History Surgery Date(Month/Year) 2001 Carpal Tunnel 2017
--- OUTSIDE RECORDS SUMMARY | 2025-04-08 10:56 | XMS_ITS | Encounter Summary ---
Author Organization [facility] Address [facility] [place] [address] Care Team Providers Care Peer Health Promoter Name Role Phone Ginger Toledo ENGINE REPAIR SUPERVISOR Unavailable [phone] Source Comments In the event this information is protected by the Federal Confidentiality of Alcohol and Drug AbusePatient Records regulations: The Federal rules restrict any use of the information to criminally investigate or prosecute any alcohol or drug abuse patient.[facility] Encounter Details Date Type Department Care Team (Late st Contact Info) Description 07/13/2023 Patient Msg Gastroenterology [address] [place] [address] Fauzia Rodriguez MD [address] [place] [address] results Social History Tobacco Use Types Packs/Day Years [...] on filedocumented in this encounter Care Teams Peer Health Promoter Relationship Specialty Start Date End Date Ginger Toledo CNP [address] [place] [address] Referring Internal Medicine 03/29/23 documented as of this encounter
--- OUTSIDE RECORDS SUMMARY | 2025-04-08 10:56 | XMS_ITS | Encounter Summary ---
Author Organization [facility] Address [address] [place] [address] Care Team Providers Care Supervisor Metal Hanging Name Role Phone Bay Mccullough MD Primary Care Provider [phone] Encounter Details Date Type Department Care Team (Late st Contact Info) Description 02/26/2025 Orders Only ERIC SMALLWOOD [address] [place] [phone] Renu Valera MA [address] [place] [address] Social History Tobacco Use Types Packs/Day Years [...] 05/07/2025 10:30 AM EDT Office Visit ERIC SMALLWOOD [address] [place] [phone] Maria M Cummings PA [address] [place] [address] documented as of this encounter Procedures Procedure Name Priority Date/Time Associated Diagnosis Comments PAP SMEAR Routine 02/17/2025 12:00 AM EDT documented in this encounter Results * Pap Smear (02/17/2025 12:00 AM EDT) Swab Cervical swab / Unknown Maria M CANALES LAB CYTOLOGY ORDERABLES Final Re sult EXTERNAL LAB documented in this encounter Visit Diagnoses Not on filedocumented in this encounter Care Teams Supervisor Metal Hanging Relationship Specialty Start Date End Date Bay Mccullough MD [address] [place] [phone] PCP - General Family Medicine 02/17/25 documented as of this encounter
--- OUTSIDE RECORDS SUMMARY | 2025-04-08 10:56 | XMS_ITS | Encounter Summary ---
Author Organization [facility] Address [address] [place] [address] [address] Care Team Providers Care Clinical Dietetic Technician Name Role Phone Bay Mccullough MD Primary Care Provider [phone] Encounter Details Date Type Department Care Team (Late Contact Info) Description 03/25/2025 External Result Encounter [facility] External Department Unsolicited Erasmo Red DO [address] Dick, [facility] Social History Tobacco Use Types Packs/Day Years [...] AM EDT Office Visit ERIC SMALLWOOD [address] [place] [address] Maria M Cummings PA [address] [facility] [place] [address] documented as of this encounter Procedures Procedure Name Priority Date/Time Associated Diagnosis Comments PATHOLOGY REQUEST FOR LAB MESHA Routine 03/25/2025 12:00 AM EDT documented in this encounter Results * PATHOLOGY REQUEST FOR LAB MESHA (03/25/2025 12:00 AM EDT) PATHOLOGY REQUEST FOR LAB MESHA 04/01/2025 7:50 AM EDT [facility] Comment:See report. Scanned copy available in EMR. Other Topography unknown / Unknown 03/25/2025 03/26/2025 10:05 AM EDT Narrative [facility] - 04/01/2025 7:50 AM EDT [facility]MB[facility] us Erasmo Red DO LAB BLOOD ORDERABLES Final Resul t Performing Organization Address City/State/[facility] Co de Phone Number [facility] [address] [place] [address], [facility] [address] [place] [address] documented in this encounter Visit Diagnoses Not on filedocumented in this encounter Care Teams Clinical Dietetic Technician Relationship Specialty Start Date End Date Bay Mccullough MD [address] [place] [address] PCP - General Family Medicine 02/17/25 documented as of this encounter
--- NOTE | 2025-04-08 11:12 | XR_ITS ---
[address] [address] Patient Name: ROSEMARY DEVINE MRN: [id number] date: 1980 Sex: F Assigned Patient Location: [facility] Current Patient Location: [facility] Accession/Order Number: [id number] Exam Date: 04/08/2025 11:33 Report Date: 04/08/2025 11:33 At the request of: TATYANA CEDILLO DO Procedure: XR chest 2V Chest 2 views CLINICAL HISTORY: Preop exam COMPARISON: None FINDINGS: Heart normal in size. Lungs are clear. No free air. XR/XR chest 2V IMPRESSION: NO ACUTE CARDIOPULMONARY ABNORMALITY. Impression dictated by: Zia Larson Jr.OAmy 04/08/2025 11:33 AM Dictation Location: [place] [address] Electronically authenticated by: [id number] Y Date: 04/08/2025 11:33
--- NOTE | 2025-04-08 11:22 | ECG_ITS ---
[facility] Test Date: 2025-04-08 Pat Name: ROSEMARY DEVINE Department: Room: - Gender: Female Customer Advocacy Manager: : 1980 Requested By: TATYANA CEDILLO Order Number: [id number] Reading MD: ROYA RODRIGEZ M.D. Measurements Intervals [place] Rate: 75 P: 71 RI: 146 QRS: 45 QRSD: 87 T: 49 QT: 381 QTc: 426 Interpretive Statements SINUS RHYTHM POSSIBLE RIGHT VENTRICULAR CONDUCTION DELAY [RSR (QR) IN V1/V2] Borderline ECG No previous ECG available for comparison Electronically Signed On 04-08-2025 19:48:50 EDT by ROYA RODRIGEZ M.D.
== END 2025-04-08 10:54 | disposition home or self-care (01) ==
LOC: PST 10:53
PROVIDERS: PCP Family Medicine; Visit Provider Obstetrics & Gynecology
DX: Z01.810 Encounter for preprocedural cardiovascular examination (principal); N92.0 Excessive and frequent menstruation with regular cycle; N93.9 Abnormal uterine and vaginal bleeding, unspecified; R10.2 Pelvic and perineal pain
CPT/HCPCS: 71046; 93005

== ENCOUNTER 2025-04-24 06:49 | Day surgery (SDC) | payer BC, SELFPAY ==
[2025-04-08 11:20] VITALS: BP 144/97; PULSE 83; TEMP 36.3; O2SAT 98; BMI 21.1
[2025-04-24 07:01] LABS: Hematocrit 36.8 % (36.0-48.0); Hemoglobin 12.5 g/dL (12.0-16.0); Immature Granulocytes Abs Auto 0.01 10^3/uL (0.00-0.03); Immature Granulocytes Pct Auto 0.1 % (0.0-0.5); Lymphocytes Absolute Auto 2.6 10^3/uL (1.2-3.8); Mean Corpuscular HGB Conc 34.0 g/dL (29.9-35.2); Mean Corpuscular Hemoglobin 29.1 pg (26.7-34.0); Mean Corpuscular Volume 85.6 fL (81.0-99.0); Platelet Count 252 10^3/uL (150-450); Red Blood Count 4.30 10^6/uL (4.20-5.40); White Blood Count 7.1 10^3/uL (4.0-11.0)
[2025-04-24 07:04] VITALS: BP 149/92; PULSE 68; TEMP 36.1; O2SAT 100; BMI 20.3
--- NOTE | 2025-04-24 09:30 | P.ON_ITS ---
Brief Operative Note Date of procedure: 04/24/25 Pre-op diagnosis general: menorrhagia, dysmenorrhea Post-op diagnosis: same as pre-op Procedure: NAME OF PROCEDURE: [ ] Sari endometrial ablation with hysteroscopy. PROCEDURE: The patient was taken back to the OR where she was prepped and draped in the normal sterile fashion after being placed in the dorsal lithotomy position, after being placed under general anesthesia without difficulty.? A weighted speculum was placed into the vagina. The anterior lip was grasped with a single tooth tenaculum. The patient was then sounded to approximated 8cm. The patient?s cervix was gently dilated using hegardilators. The hysteroscope was passed through the cervix into the uterus where both ostia were seen. No gross evidence of polyps, fibroids or malignancy. The cervical length was noted to be 4 cm. The total cavity length is 4cm.? The Sari ablation apparatus was set to approximately 4cm in length. This was placed through the cervix and into the uterus. After the seal was tested, at that time the total ablation of 120 seconds was performed with the Sari withoutdifficulty. All instruments were removed from the vagina. Excellent hemostasis noted.? Sponge and lap count co rrect times 2.? Patient taken to recovery in stable condition. Anesthesia: MAC Surgeon: Erasmo Red Estimated blood loss (mL): 5 Pathology: none sent Condition: stable Disposition: PACU Urinary Catheter Management Urinary Catheter Management Urethral: Cath placed during this visit: no
[2025-04-24 09:38] VITALS: BP 101/60; PULSE 73; TEMP 36.3; O2SAT 93
[2025-04-24 09:53] VITALS: BP 110/70; PULSE 67; TEMP 36.2; O2SAT 96
[2025-04-24 10:08] VITALS: BP 136/81; PULSE 63; O2SAT 100
[2025-04-24 10:21] VITALS: BP 132/92; PULSE 77; O2SAT 97
== END 2025-04-24 10:21 | disposition home or self-care (01) ==
PROVIDERS: PCP Family Medicine; Visit Provider Obstetrics & Gynecology
PROC: (CPT 952; principal; 2025-04-24 08:15)
DX: N92.0 Excessive and frequent menstruation with regular cycle (principal); N93.9 Abnormal uterine and vaginal bleeding, unspecified; R10.2 Pelvic and perineal pain; Z98.51 Tubal ligation status; F17.290 Nicotine dependence, other tobacco product, uncomplicated; F41.9 Anxiety disorder, unspecified
CPT/HCPCS: 58563; 36415; 84702; 85025; J1100; J1885; J2250; J2704; J3010